=== PATIENT | female | born 1955 ===

== ENCOUNTER 2017-07-02 16:44 | Inpatient (IN) | payer OTHER ==
[2017-07-02] MEDS ORDERED: LEVO75TA68 PO (16:47)
[2017-07-02] MEDS ORDERED: ASPI-1471 PO (16:47)
[2017-07-02] MEDS ORDERED: PRAV20TA65 PO (16:47)
--- NOTE | 2017-07-02 16:49 | ER Report ---
History and Physical Time Seen By MD: 16:49 Hx. of Stated Complaint: C/O SEVERE ABDOMINAL PAIN. HPI/ROS CHIEF COMPLAINT: Abdominal pain HISTORY OF PRESENT ILLNESS: 62-year-old female patient presents to emergency room with complaint of abdominal pain. Patient states pain started approximately 2:00 this afternoon and states it wasn't terrible at that time. Patient states that the pain has worsened. She states that she tried have a bowel movement was able to have a small bowel movement. She states the pain seemed to worsen after that though. She states that she now is having significant abdominal pain. She states that there is nothing seems to make it better or worse. She initially thought she was constipated, however at this time she is unsure what is causing her pain. Patient denies a history of any abdominal surgeries. Patient states she's tried drinking some water as well as eating apple without any vomiting, however that seemed to make the pain worse. REVIEW OF SYSTEMS: Respiratory: No cough, no dyspnea. Cardiovascular: No chest pain, no palpitations. Gastrointestinal: As noted above Musculoskeletal: No back pain. Allergies: Coded Allergies: Penicillins (Verified Adverse Reaction, Mild, RASH, 07/02/17) Home Meds Reported Medications Aspirin (ASPIR 81) 81 Mg Tablet.dr, 81 MG PO QDAY, TAB 07/02/17 Pravastatin Sodium (PRAVACHOL) 20 Mg Tablet, 40 MG PO QDAY, TAB 07/02/17 Levothyroxine Sodium (SYNTHROID) 75 Mcg Tablet, 75 MCG PO QDAY 07/02/17 Past Medical/Surgical History Patient has a past medical history of hyperlipidemia, hypothyroidism. Patient denies any surgical history. Reviewed Nurses Notes: Yes Constitutional Vital Sign - Last 24 Hours 07/02/17 16:45 Temp 97.8 Pulse 69 Resp 22 B/P (MAP) 121/83 Pulse Ox 97 Physical Exam General Appearance: The patient is alert, has no immediate need for airway protection and no current signs of toxicity. ENT: Tympanic membranes are pearly-piedra, auditory canals are patent, mucous membranes are moist. Respiratory: Chest is non tender, lungs are clear to auscultation. Cardiac: regular rate and rhythm Gastrointestinal: Abdomen is soft and tender, no masses, bowel sounds are hypoactive. Musculoskeletal: Neck: Neck is supple and non tender. Extremities have full range of motion and are non tender. Skin: No rashes or lesions. DIFFERENTIAL DIAGNOSIS: After history and physical exam differential diagnosis was considered for abdominal pain including but not limited to appendicitis, cholecystitis, gastritis and urinary tract infection. Medical Decision Making Data Points Result Diagram: 07/02/17 1706 07/02/17 1706 Laboratory Hematology Test 07/02/17 17:06 07/02/17 18:37 Red Blood Count 5.31 M/uL (4.17-5.56) Mean Corpuscular Volume 96.3 fL (80.0-96.0) Mean Corpuscular Hemoglobin 33.7 pg (26.0-33.0) Mean Corpuscular Hemoglobin Concent 35.0 g/dL (32.0-36.0) Red Cell Distribution Width 13.1 % (11.5-14.5) Mean Platelet Volume 10.3 fL (7.2-11.1) Neutrophils (%) (Auto) 77.4 % (39.4-72.5) Lymphocytes (%) (Auto) 15.5 % (17.6-49.6) Monocytes (%) (Auto) 5.7 % (4.1-12.4) Eosinophils (%) (Auto) 0.6 % (0.4-6.7) Basophils (%) (Auto) 0.8 % (0.3-1.4) Nucleated RBC Relative Count (auto) 0.0 /100WBC Neutrophils # (Auto) 5.9 K/uL (2.0-7.4) Lymphocytes # (Auto) 1.2 K/uL (1.3-3.6) Monocytes # (Auto) 0.4 K/uL (0.3-1.0) Eosinophils # (Auto) 0.0 K/uL (0.0-0.5) Basophils # (Auto) 0.1 K/uL (0.0-0.1) Nucleated RBC Absolute Count (auto) 0.00 K/uL Sodium Level 139 mmol/L (137-145) Potassium Level 3.9 mmol/L (3.5-5.0) Chloride Level 104 mmol/L (98-107) Carbon Dioxide Level 23 mmol/L (22-31) Blood Urea Nitrogen 25 mg/dl (7-18) Creatinine 0.80 mg/dl (0.52-1.04) Glomerular Filtration Rate Calc > 60.0 Random Glucose 118 mg/dl (75-110) Calcium Level 9.6 mg/dl (8.4-10.2) Total Bilirubin 0.6 mg/dl (0.2-1.3) Aspartate Amino Transf (AST/SGOT) 24 U/L (0-35) Alanine Aminotransferase (ALT/SGPT) 38 U/L (0-56) Alkaline Phosphatase 96 U/L (0-126) Total Protein 7.6 gm/dl (6.3-8.2) Albumin 4.3 g/dl (3.5-5.0) Amylase Level 71 U/L (0-110) Lipase 54 U/L (23-300) Urine Color Yellow Urine Clarity Clear Urine pH 5.0 pH (4.8-9.5) Urine Specific Driver 1.056 Urine Protein Negative mg/dL (NEGATIVE) Urine Glucose (UA) Negative mg/dL (NEGATIVE) Urine Ketones 20 mg/dL (NEGATIVE) Urine Blood Negative (NEGATIVE) Urine Nitrite Negative (NEGATIVE) Urine Bilirubin Negative (NEGATIVE) Urine Urobilinogen 4.0 mg/dL (0.2-1.9) Urine Leukocyte Esterase Negative (NEGATIVE) Urine RBC 1 /HPF (0-2/HPF) Urine WBC 2 /HPF (0-5/HPF) Urine Squamous Epithelial Cells Many /LPF (</=FEW) Urine Bacteria Few /HPF (NONE-FEW) Urine Mucus Few /HPF (NONE-FEW) Chemistry Test 07/02/17 17:06 07/02/17 18:37 White Blood Count 7.7 k/uL (4.5-11.0) Red Blood Count 5.31 M/uL (4.17-5.56) Hemoglobin 17.9 g/dL (12.0-16.0) Hematocrit 51.1 % (34.0-47.0) Mean Corpuscular Volume 96.3 fL (80.0-96.0) Mean Corpuscular Hemoglobin 33.7 pg (26.0-33.0) Mean Corpuscular Hemoglobin Concent 35.0 g/dL (32.0-36.0) Red Cell Distribution Width 13.1 % (11.5-14.5) Platelet Count 156 K/uL (150-450) Mean Platelet Volume 10.3 fL (7.2-11.1) Neutrophils (%) (Auto) 77.4 % (39.4-72.5) Lymphocytes (%) (Auto) 15.5 % (17.6-49.6) Monocytes (%) (Auto) 5.7 % (4.1-12.4) Eosinophils (%) (Auto) 0.6 % (0.4-6.7) Basophils (%) (Auto) 0.8 % (0.3-1.4) Nucleated RBC Relative Count (auto) 0.0 /100WBC Neutrophils # (Auto) 5.9 K/uL (2.0-7.4) Lymphocytes # (Auto) 1.2 K/uL (1.3-3.6) Monocytes # (Auto) 0.4 K/uL (0.3-1.0) Eosinophils # (Auto) 0.0 K/uL (0.0-0.5) Basophils # (Auto) 0.1 K/uL (0.0-0.1) Nucleated RBC Absolute Count (auto) 0.00 K/uL Glomerular Filtration Rate Calc > 60.0 Calcium Level 9.6 mg/dl (8.4-10.2) Total Bilirubin 0.6 mg/dl (0.2-1.3) Aspartate Amino Transf (AST/SGOT) 24 U/L (0-35) Alanine Aminotransferase (ALT/SGPT) 38 U/L (0-56) Alkaline Phosphatase 96 U/L (0-126) Total Protein 7.6 gm/dl (6.3-8.2) Albumin 4.3 g/dl (3.5-5.0) Amylase Level 71 U/L (0-110) Lipase 54 U/L (23-300) Urine Color Yellow Urine Clarity Clear Urine pH 5.0 pH (4.8-9.5) Urine Specific Driver 1.056 Urine Protein Negative mg/dL (NEGATIVE) Urine Glucose (UA) Negative mg/dL (NEGATIVE) Urine Ketones 20 mg/dL (NEGATIVE) Urine Blood Negative (NEGATIVE) Urine Nitrite Negative (NEGATIVE) Urine Bilirubin Negative (NEGATIVE) Urine Urobilinogen 4.0 mg/dL (0.2-1.9) Urine Leukocyte Esterase Negative (NEGATIVE) Urine RBC 1 /HPF (0-2/HPF) Urine WBC 2 /HPF (0-5/HPF) Urine Squamous Epithelial Cells Many /LPF (</=FEW) Urine Bacteria Few /HPF (NONE-FEW) Urine Mucus Few /HPF (NONE-FEW) Urinalysis Test 07/02/17 18:37 Urine Color Yellow Urine Clarity Clear Urine pH 5.0 pH (4.8-9.5) Urine Specific Driver 1.056 Urine Protein Negative mg/dL (NEGATIVE) Urine Glucose (UA) Negative mg/dL (NEGATIVE) Urine Ketones 20 mg/dL (NEGATIVE) Urine Blood Negative (NEGATIVE) Urine Nitrite Negative (NEGATIVE) Urine Bilirubin Negative (NEGATIVE) Urine Urobilinogen 4.0 mg/dL (0.2-1.9) Urine Leukocyte Esterase Negative (NEGATIVE) Urine RBC 1 /HPF (0-2/HPF) Urine WBC 2 /HPF (0-5/HPF) Urine Squamous Epithelial Cells Many /LPF (</=FEW) Urine Bacteria Few /HPF (NONE-FEW) Urine Mucus Few /HPF (NONE-FEW) EKG/Imaging Imaging COMPUTED TOMOGRAPHY OF THE Abdomen and Pelvis with CONTRAST INDICATION: Abdominal pain. TECHNIQUE: Contiguous axial 3.[address] images were obtained through the abdomen and pelvis after the administration of 75 cc Isovue-370. Coronal and sagittal reformatted images were submitted. COMPARISON: None. FINDINGS: Lung bases: Clear. Liver and hepatic vasculature: There is trace fluid adjacent to the right lobe of the liver extending into the right pericolic gutter. There is also a small volume of fluid in the left pericolic gutter. Gallbladder and bile ducts: Normal Spleen: Normal Pancreas: Mild atrophy of the pancreatic head and neck. Adrenals: Normal Kidneys, ureters and bladder: Normal Retroperitoneum and aorta: Mild aortic atherosclerosis. No adenopathy. No aneurysm. GI tract, mesentery and peritoneum: There is free air scattered about the abdomen. It appears most concentrated centrally in the mid abdomen adjacent to the sigmoid colon and an area of abnormal wall thickening. The wall of the rectosigmoid colon is thickened over a relatively long segment. The proximal/ upstream colon appears normal. There are gas bubbles adjacent to the liver, spleen, and a few extend into a small fat-containing paraumbilical hernia at midline. Uterus and adnexa: Unremarkable uterus. Small volume of fluid in the cul-de-sac. Bones and soft tissues: No acute osseous abnormality. Mild degenerative findings. IMPRESSION: Free air in the abdomen suspicious for perforation (in the absence of recent surgery or intervention) with the most likely source being the sigmoid colon in the low midabdomen. The rectosigmoid colon is thick walled in this region which could reflect an infectious, inflammatory, or neoplastic etiology. Results were called to Dr. MARILEE LAI at 07/02/2017 6:45 PM. One of the following dose optimization techniques was utilized in the performance of this exam: Automated exposure control; adjustment of the mA and/ or kV according to the patient's size; or use of an iterative reconstruction technique. Specific details can be referenced in the facility's radiology CT exam operational policy. Report Dictated By: Barron Simmons MD at 07/02/2017 6:35 PM Report E-Signed By: Barron Simmons MD at 07/02/2017 6:52 PM ED Course/Re-evaluation ED Course Patient was admitted to exam room, history and physical were obtained. Differential diagnoses were considered. On examination patient has diffuse tenderness throughout the belly. A IV was started, CBC, CMP, urinalysis were obtained. Lab results were unremarkable. A CT scan of abdomen and pelvis was done. When I initially reviewed the images and the. The patient was just constipated. However did receive a call from Dr. Simmons, radiologist, who informed me that she did have a perforation, he believed the likely location of that was the rectosigmoid colon. I discussed the case with Dr. Flores, general surgeon, who evaluated the patient and site that she needed to go to the operating room for exploratory laparoscopy. I did discuss findings with the patient. They are understanding the current plan agree with plan to go to surgery. We did struggle during the patient's time in the emergency room getting her pain control. We did start with 4 mg of morphine which had no improvement. We then gave her 3 doses of 10 mg of ketamine, with minimal improvement. She did have more improvement with 1 mg of Dilaudid. Patient will be treated with Levaquin and Flagyl prior to going to the operating room. Decision to Disposition Date: Jul 02, 2017 Decision to Disposition Time: 19:04 Depart Departure Latest Vital Signs Vital Signs Date Time Temp Pulse Resp B/P (MAP) Pulse Ox O2 Delivery O2 Flow Rate FiO2 07/02/17 16:45 97.8 69 22 121/83 97 Impression: Primary Impression: Large bowel perforation Condition: Condition Unchanged Disposition: ADMIT FROM ER TO OR MARILEE LAI Jul 02, 2017 16:49
[2017-07-02] MEDS ORDERED: ONDANSETRON 4 MG/2 ML VIAL IVP ONE ×2 (16:55→19:50)
[2017-07-02] MEDS ORDERED: MORPHINE 2 MG/ML SYR IVP ONE (16:55)
[2017-07-02] MEDS ORDERED: NS(*) 0.9% 1000 ML BAG 1,000 ML IV ONE (16:55)
[2017-07-02] MEDS ORDERED: IOPAMIDOL 76% 75 ML INFUS BTL 75 ML ONE ×2 (17:05→18:08)
[2017-07-02] MEDS ORDERED: KETAMINE HCL 500 MG/5 ML VIAL IVP ONE (17:20)
[2017-07-02 17:33] LABS: PLATELET COUNT, AUTOMATED 156 K/uL (150-450)
--- NOTE | 2017-07-02 18:57 | RADIOLOGY IMAGING REPORT ---
FACILITY: [facility] - [place] PATIENT NAME: Isabela Rojas : 1955 MR: [id number] V: [id number] EXAM DATE: ORDERING PHYSICIAN: MARILEE LAI TECHNOLOGIST: Location: [facility] - [place] Patient: Isabela Rojas : 1955 Visit/Account:[id number] Date of Sevice: 07/02/2017 COMPUTED TOMOGRAPHY OF THE Abdomen and Pelvis with CONTRAST INDICATION: Abdominal pain. TECHNIQUE: Contiguous axial 3.[address] images were obtained through the abdomen and pelvis after the administration of 75 cc Isovue-370. Coronal and sagittal reformatted images were submitted. COMPARISON: None. FINDINGS: Lung bases: Clear. Liver and hepatic vasculature: There is trace fluid adjacent to the right lobe of the liver extendin g into the right pericolic gutter. There is also a small volume of fluid in the left pericolic gutter . Gallbladder and bile ducts: Normal Spleen: Normal Pancreas: Mild atrophy of the pancreatic head and neck. Adrenals: Normal Kidneys, ureters and bladder: Normal Retroperitoneum and aorta: Mild aortic atherosclerosis. No adenopathy. No aneurysm. GI tract, mesentery and peritoneum: There is free air scattered about the abdomen. It appears most co ncentrated centrally in the mid abdomen adjacent to the sigmoid colon and an area of abnormal wall th ickening. The wall of the rectosigmoid colon is thickened over a relatively long segment. The proxima l/upstream colon appears normal. There are gas bubbles adjacent to the liver, spleen, and a few exten d into a small fat-containing paraumbilical hernia at midline. Uterus and adnexa: Unremarkable uterus. Small volume of fluid in the cul-de-sac. Bones and soft tissues: No acute osseous abnormality. Mild degenerative findings. IMPRESSION: Free air in the abdomen suspicious for perforation (in the absence of recent surgery or intervention) with the most likely source being the sigmoid colon in the low midabdomen. The rectosigmoid colon is thick walled in this region which could reflect an infectious, inflammatory, or neoplastic etiology. Results were called to Dr. MARILEE LAI at 07/02/2017 6:45 PM. One of the following dose optimization techniques was utilized in the performance of this exam: Autom ated exposure control; adjustment of the mA and/or kV according to the patient's size; or use of an i terative reconstruction technique. Specific details can be referenced in the facility's radiology C T exam operational policy. Report Dictated By: Barron Simmons MD at 07/02/2017 6:35 PM Report E-Signed By: Barron Simmons MD at 07/02/2017 6:52 PM WSN:[id number]
[2017-07-02] MEDS ORDERED: HYDROmorphone* 1 MG/ML 1 MG/ML ML IVP ONE (19:05)
[2017-07-02] MEDS ORDERED: metroNIDAZOLE* 500MG/100ML BAG 100 ML IVPB ONE (19:15)
[2017-07-02] MEDS ORDERED: LEVOFLOXACIN/D5W*500 MG/100 ML 100 ML IVPB ONE (19:15)
[2017-07-02] MEDS ORDERED: NORMOSOL R SOLN(*) 1000 ML BAG 1,000 ML IV ONE (19:18)
[2017-07-02] MEDS ORDERED: NORMOSOL R SOLN(*) 1000 ML BAG 1,000 ML IV PRN (19:20)
--- NOTE | 2017-07-02 19:20 | General Surgery 1 H&P ---
History of Present Illness Chief Complaint abdominal pain History of Present Illness 62 yo female with abdominal pain since 2 pm. sharp unrelenting diffuse pain that is hard to control with narcotics. she has been having constipation for a few days prior to this episode. she has had a colonoscopy in the past that was normal. ct suggests a thickened sigmoid colon and free air most likely secondary to perforated sigmoid colon. History Other Past Surgeries: knee operation Home Meds Reported Medications Aspirin (ASPIR 81) 81 Mg Tablet.dr, 81 MG PO QDAY, TAB 07/02/17 Pravastatin Sodium (PRAVACHOL) 20 Mg Tablet, 40 MG PO QDAY, TAB 07/02/17 Levothyroxine Sodium (SYNTHROID) 75 Mcg Tablet, 75 MCG PO QDAY 07/02/17 Allergies: Coded Allergies: Penicillins (Verified Adverse Reaction, Mild, RASH, 07/02/17) Review of Systems History of Hypertension?: No History of Diabetes?: No History of DVT?: No Obstructive Sleep Apnea?: No History of Liver Disease?: No History of Kidney Disease?: No Constitutional: No Fever, No Weight Loss, No Weight Gain, No Chills, No Night Sweats, No Other Respiratory: Denies Shortness of Breath, Denies Other Cardiovascular: Denies Chest Pain, Denies Other : Denies Dysuria, Denies Other Exam Vital Signs Date Time Temp Pulse Resp B/P (MAP) Pulse Ox O2 Delivery O2 Flow Rate FiO2 07/02/17 16:45 97.8 69 22 121/83 97 General Appearance: Alert, Awake, Other (in severe abdominal pain.) Cardiovascular: Regular Rate and Rhythm Respiratory: Clear to Auscultation GI: Other (rigid abdomen with diffuse guarding) Medical Decision Making Data Points Result Diagram: 07/02/17 1706 07/02/17 1706 Assessment and Plan Problems: (1) Large bowel perforation Status: Acute Assessment & Plan: to the operating room massiel for exploration and most likely a sigmoid colectomy and may need a colostomy. will try primary repair if possible. Copies to: TITO LOZADA MD Venous Thromboembolism Antithrombotics Is Pt On Any Antithrombotics?: No TITO LOZADA MD Jul 02, 2017 19:20
[2017-07-02] MEDS ORDERED: ROPIVACAINE 0.2% 20 ML VIAL ONE ×2 (19:38→21:20)
[2017-07-02] MEDS ORDERED: FAMOTIDINE(*) 20MG/50ML PREMIX 50 ML IVPB ONE (19:39)
[2017-07-02] MEDS ORDERED: NALOXONE HCL 0.4 MG/ML VIAL IVP PRN (19:40)
[2017-07-02] MEDS ORDERED: ONDANSETRON 4 MG/2 ML VIAL ONE (19:42)
[2017-07-02] MEDS ORDERED: ETOMIDATE 20 MG/10 ML VIAL ONE (19:42)
[2017-07-02] MEDS ORDERED: SUCCINYLCHOL CHL 200MG/10ML VL ONE (19:42)
[2017-07-02] MEDS ORDERED: PROPOFOL EMUL(*) 10MG/ML 20 ML 20 ML ONE (19:42)
[2017-07-02] MEDS ORDERED: DEXAMETHASONE SOD PHOS 10MG/ML ONE (19:42)
[2017-07-02] MEDS ORDERED: ROCURONIUM BROM 10 MG/ML 10 ML ONE (19:42)
[2017-07-02] MEDS ORDERED: LIDOCAINE MPF 1% 5 ML VIAL ONE (19:42)
[2017-07-02] MEDS ORDERED: fentaNYL CITR 100 MCG/2 ML AMP ONE (19:45)
[2017-07-02] MEDS ORDERED: MIDAZOLAM 2 MG/2 ML VIAL ONE (19:45)
[2017-07-02] MEDS ORDERED: HYDROmorphone HCL 2 MG/ML SDV ONE (20:51)
[2017-07-02] MEDS ORDERED: ACETAMINOPHEN(*)1000 MG/100 ML 100 ML IVPB SCH (21:00)
[2017-07-02] MEDS ORDERED: NS 0.9% 3000 ML IRRIGATION BAG IR ONE (21:24)
[2017-07-02] MEDS ORDERED: NS 0.9% 20 ML SDV 20 ML ONE (21:41)
[2017-07-02] MEDS ORDERED: PHENYLEPHRINE/NS/PF 0.4MG/10ML ONE (21:41)
[2017-07-02] MEDS ORDERED: ALBUMIN HUMAN 5% 250 ML BTL 250 ML ONE (21:47)
[2017-07-02] MEDS ORDERED: SUGAMMADEX SOD 500 MG/5 ML SDV ONE (21:48)
--- NOTE | 2017-07-02 22:18 | Post Operative Progress Note ---
Post Operative Progress Note Date: Jul 02, 2017 Time: 22:17 Surgeon: julieta Anesthesia: dr mariscal Pre-Op Diagnosis: perforated sigmoid colon Post-Op Diagnosis: same Procedure(s): sigmoid colectomy and end colostomy. TITO LOZADA MD Jul 02, 2017 22:18
[2017-07-02] MEDS ORDERED: PROMETHAZINE 25 MG/ML 1 ML AMP ONE (23:00)
[2017-07-02 23:43] VITALS: BP 131/84
[2017-07-03] VITALS (11 sets, daily range): BP systolic 96–122; BP diastolic 60–82
[2017-07-03] MEDS: NORMOSOL R SOLN(*) 1000 ML BAG 1,000 ML IV PRN ×3 (00:30→14:02)
[2017-07-03] MEDS ORDERED: metroNIDAZOLE* 500MG/100ML BAG 100 ML IVPB SCH (01:00)
[2017-07-03] MEDS: MORPHINE 1 MG/ML 30 ML PCA IV PRN ×2 (03:02→16:01)
[2017-07-03] MEDS: metroNIDAZOLE* 500MG/100ML BAG 100 ML IVPB SCH ×3 (03:17→19:11)
--- NOTE | 2017-07-03 04:33 | OPERATIVE REPORT 1 ---
EVENT DATE: July 02, 2017 SURGEON: Ottoniel Flores MD ANESTHESIOLOGIST: Venkat Beach MD ANESTHESIA: General. PREOPERATIVE DIAGNOSIS Perforated colon. POSTOPERATIVE DIAGNOSIS Perforated sigmoid colon. PROCEDURE PERFORMED Sigmoid colectomy with end colostomy and a Kel pouch. PROCEDURE Patient was placed in the supine position, given general anesthetic. NG, Barlow were placed. Sequential compression device was placed. We then placed her in modified lithotomy position in the [facility]. The abdomen was then prepped and draped in sterile fashion. We made an incision below the umbilicus , carried down through the skin and subcutaneous tissue, and entered the peritoneal cavity. There was brownish ascitic fluid. This was suctioned. We reached in the left lower quadrant and could palpate a firm colon full of stool , and there were some omental adhesions down there. Because of the brown color of the fluid, it was pretty apparent to me that this was a colon perforation, so the incision was extended inferiorly. We then packed the small bowel away. Small bowel was beefy red and markedly inflamed. The left colon had numerous hard stool pieces in it. As we worked our way down towards the rectosigmoid junction, we came upon a free-floating piece of stool that was 4.5 cm in diameter. This large chunk of stool was removed from the field. We then identified the perforated distal sigmoid colon. It was perforated on the right side. At this point, we freed up the lateral peritoneal attachments of the sigmoid colon so we could get better visualization of this. We then dissected distal to the hold in the sigmoid colon close to the rectosigmoid junction, dissected circumferentially around that with electrocautery. We then fired a 60 linear stapler across that, transected the bowel. The mesentery of the colon was then divided with the harmonic scalpel, and we were able to free that colon up and bring it up into the wound, where we could get good visualization. She had numerous large balls of stool present in the colon. These were milked out of the hole. We cleared out the entire left colon with gentle milking action of these hard large pieces of stool. However, the transverse colon was completely filled with stool. It was softer, but still full, as was the right colon and the cecum. I could not bring myself to do a primary reanastomosis in this patient with that kind of stool that was going to have to pass, and the fact that she had put a hole in her colon from constipation already, so it was decided to do a colostomy. We freed up the colon a little bit more with the harmonic scalpel. We seemed to have plenty of length to do a colostomy. We then spent several minutes doing copious irrigation of the abdomen with saline into all quadrants, suctioning this out. This was done repeatedly, and we cleared it up as best we could. At this point, we made a transverse incision between the umbilicus and the anterior superior iliac spine , and we were above this, carried down through skin and subcutaneous tissue, incised the rectus fascia vertically, spread the rectus muscle vertically, incised the posterior sheath. We were able to get two fingers through this opening. We then brought the sigmoid colon out through this opening. At this point, we did a sponge and needle count. All the counts were correct. The peritoneum was then closed with a running #0-Chromic. The fascia was closed with running looped #0-PDS. We injected 40 mL of 0.2% ropivacaine in the muscle and subcutaneous tissue. The deep subcu was reapproximated loosely with interrupted 2-0 Chromics. We then covered this. We went to the stoma. We went proximal to the perforation, of course, and put a linear stapler across that, fired it and removed that portion of the sigmoid colon from the field. We then brought the stapled end out through the left lower quadrant colostomy incision. At this point, we cut the staple line off and matured the colostomy with interrupted 3-0 Chromics, going full thickness seromuscular and mucosa, and then attaching it to the skin. This was done circumferentially. The bowel appeared nice and pink and viable, and we then placed a colostomy bag over this. We then placed saline moist Kerlix in the wound, and covered it with 4x4' s and Mediport tape. Patient tolerated the procedure well, no apparent complication. Estimated blood loss was negligible. MTDD
[2017-07-03 05:36] LABS: PLATELET COUNT, AUTOMATED 113 K/uL (150-450)
[2017-07-03] MEDS: ACETAMINOPHEN(*)1000 MG/100 ML 100 ML IVPB SCH ×3 (06:35→23:16)
--- NOTE | 2017-07-03 08:02 | General Surgery Progress Note ---
Subjective Progress Notes Subjective pt feels much better than preop, no nausea no vomiting. Physical Exam Vital Signs Date Time Temp Pulse Resp B/P (MAP) Pulse Ox O2 Delivery O2 Flow Rate FiO2 07/03/17 07:14 98.3 75 16 96/82 (87) 96 Nasal Cannula 1.0 Intake and Output 07/04/17 07:00 Intake Total 1033 ml Balance 1033 ml Intake IV Total 1033 ml General Appearance: Alert, Awake, No Acute Distress GI: Other (stoma viable) Result Diagram: 07/03/1751907/03/17519 Assessment and Plan Problems: (1) Large bowel perforation Status: Acute Assessment & Plan: to the operating room massiel for exploration and most likely a sigmoid colectomy and may need a colostomy. will try primary repair if possible. 07/03/17 doing well. so far wbc normal. hgb at 14. bun and creat ok. will work on ambulation , keep npo. Exam Sepsis Risk: No Definite Risk TITO LOZADA MD Jul 03, 2017 08:02
[2017-07-03] MEDS: ENOXAPARIN 40 MG/0.4ML SYR SC SCH (08:45)
[2017-07-03] MEDS: PANTOPRAZOLE SOD 40 MG IV VIAL IVP SCH (08:45)
[2017-07-03] MEDS: ONDANSETRON 4 MG/2 ML VIAL IVP PRN ×2 (11:23→19:54)
[2017-07-03] MEDS ORDERED: NORMOSOL R SOLN(*) 1000 ML BAG 1,000 ML IV PRN (17:40)
[2017-07-03] MEDS: LEVOFLOXACIN/D5W*500 MG/100 ML 100 ML IVPB SCH (17:48)
[2017-07-03] MEDS: KETOROLAC 30 MG/ML VIAL IVP SCH ×2 (17:48→23:16)
[2017-07-04] MEDS: metroNIDAZOLE* 500MG/100ML BAG 100 ML IVPB SCH ×3 (03:39→19:47)
[2017-07-04 03:46] VITALS: BP 109/58
[2017-07-04 05:44] LABS: PLATELET COUNT, AUTOMATED 96 K/uL (150-450)
[2017-07-04] MEDS: KETOROLAC 30 MG/ML VIAL IVP SCH ×4 (06:23→23:27)
[2017-07-04] MEDS: ACETAMINOPHEN(*)1000 MG/100 ML 100 ML IVPB SCH ×3 (06:23→23:28)
[2017-07-04 08:26] VITALS: BP 98/51
[2017-07-04] MEDS ORDERED: MAGNESIUM HYDROXIDE* 30ML UDCP PO PRN (09:10)
--- NOTE | 2017-07-04 09:13 | General Surgery Progress Note ---
Subjective Progress Notes Subjective pain controlled, slept ok. moving a little easier Physical Exam Vital Signs Date Time Temp Pulse Resp B/P (MAP) Pulse Ox O2 Delivery O2 Flow Rate FiO2 07/04/17 08:28 90 Room Air 07/04/17 08:26 98.4 62 14 98/51 (67) 07/04/17 03:46 1.0 General Appearance: Alert, Awake, No Acute Distress GI: Other (stoma with flatus) Result Diagram: 07/04/1752307/04/17523 Assessment and Plan Problems: (1) Large bowel perforation Status: Acute Assessment & Plan: to the operating room massiel for exploration and most likely a sigmoid colectomy and may need a colostomy. will try primary repair if possible. 07/03/17 doing well. so far wbc normal. hgb at 14. bun and creat ok. will work on ambulation , keep npo. 07/04/17 doing well. has flatus will try clears and milk of mag. will do mineral oil enema as well. Exam Sepsis Risk: No Definite Risk TITO LOZADA MD Jul 04, 2017 09:13
[2017-07-04] MEDS: PANTOPRAZOLE SOD 40 MG IV VIAL IVP SCH (09:20)
[2017-07-04] MEDS: ENOXAPARIN 40 MG/0.4ML SYR SC SCH (09:21)
[2017-07-04] MEDS: KCL IV SCH ×2 (10:11→20:30)
[2017-07-04] MEDS: NORMOSOL R IV SCH ×2 (10:11→20:30)
[2017-07-04 11:32] VITALS: BP 97/52
[2017-07-04] MEDS: ONDANSETRON 4 MG/2 ML VIAL IVP PRN ×2 (14:32→19:51)
--- NOTE | 2017-07-04 14:59 | Medical Nutrition Therapy ---
Nutrition Anthropometrics Weight (Pounds): 184 Weight (Calculated Kilograms): 83.461 Sudeep Nutrition Score: Probably Inadequate Sudeep Nutrition Risk Score: 16 Dietary Referral Nutrition Risk Factors: Nutrition Risk Comment: Pt sleeping from Surgery. Unable to gain information. Nutritional Diagnosis Nutritional Risk Acuity 2: New Colostomy Nutritional Acuity: 2-Moderate Nutrition Diagnosis: Altered GI Function Nutrition Etiology: Physiological Causes Nutrition Problem/Etiology/Sym: Altered GI function related to physiological causes as evidenced by new colostomy Diet Type: Clear Liquids Nutrition Intervention: Incr diet as tolerated, Obtain Height and Weight Optional Order Time?: No Nutrition Monitoring & Eval RD Patient Assessment Time: [address] Assessment Type: RD Assessment Patient Nutrition Acuity: 2-Moderate Follow Up Date: Jul 08, 2017 Nutritional Comment: 07/03 Pt admitted with new colostomy following surgery for perf bowel. Pt currently NPO. Alb 3. Will cont to monitor. 07/04 Diet advanced to clear liquids with no intake to report yet. Notable labs include BUN 22, tot pro 4.8 and alb 2.5. Please obtain ht and wt for energy needs calculations. Will cont to monitor clinical progression and diet advancement. STACIE SOUTH Jul 04, 2017 14:59
[2017-07-04] MEDS: LEVOFLOXACIN/D5W*500 MG/100 ML 100 ML IVPB SCH (18:42)
[2017-07-04 19:35] VITALS: BP 111/70
[2017-07-04 23:36] VITALS: BP 106/62
[2017-07-05] MEDS: KCL IV SCH (00:45)
[2017-07-05] MEDS: NORMOSOL R IV SCH (00:45)
[2017-07-05] MEDS: MORPHINE 1 MG/ML 30 ML PCA IV PRN (01:58)
[2017-07-05 01:59] VITALS: BP 115/68
[2017-07-05] MEDS: metroNIDAZOLE* 500MG/100ML BAG 100 ML IVPB SCH ×3 (02:17→19:19)
[2017-07-05] MEDS: KETOROLAC 30 MG/ML VIAL IVP SCH ×4 (06:17→23:59)
[2017-07-05] MEDS: ACETAMINOPHEN(*)1000 MG/100 ML 100 ML IVPB SCH ×3 (06:18→23:00)
[2017-07-05 08:07] VITALS: BP 112/64
--- NOTE | 2017-07-05 08:59 | General Surgery Progress Note ---
Subjective Progress Notes Subjective no appetite, tolerating some clears Physical Exam Vital Signs Date Time Temp Pulse Resp B/P (MAP) Pulse Ox O2 Delivery O2 Flow Rate FiO2 07/05/17 08:07 97.6 60 16 112/64 (80) 96 Room Air 60 07/05/17 01:59 0.5 General Appearance: Alert, Awake, No Acute Distress GI: Other (stoma with some stool output) Result Diagram: 07/04/17 0507/04/1724 Assessment and Plan Problems: (1) Large bowel perforation Status: Acute Assessment & Plan: to the operating room massiel for exploration and most likely a sigmoid colectomy and may need a colostomy. will try primary repair if possible. 07/03/17 doing well. so far wbc normal. hgb at 14. bun and creat ok. will work on ambulation , keep npo. 07/04/17 doing well. has flatus will try clears and milk of mag. will do mineral oil enema as well. 07/05/17 bowel function returning. try increasing diet and continue with bowel stimulants. Exam Sepsis Risk: No Definite Risk TITO LOZADA MD Jul 05, 2017 08:59
[2017-07-05] MEDS: ONDANSETRON 4 MG/2 ML VIAL IVP PRN ×2 (09:00→18:51)
[2017-07-05] MEDS ORDERED: MAGNESIUM HYDROXIDE* 30ML UDCP PO PRN (09:05)
[2017-07-05] MEDS: APAP/HYDROCODONE 325/5 TAB PO PRN ×3 (09:13→17:23)
[2017-07-05] MEDS: ENOXAPARIN 40 MG/0.4ML SYR SC SCH (09:16)
[2017-07-05] MEDS ORDERED: NORMOSOL R IV SCH (11:30)
[2017-07-05] MEDS ORDERED: KCL IV SCH (11:30)
[2017-07-05 12:58] VITALS: BP 126/77
[2017-07-05 15:43] VITALS: BP 134/73
[2017-07-05] MEDS: LEVOFLOXACIN/D5W*500 MG/100 ML 100 ML IVPB SCH (17:59)
[2017-07-05 19:22] VITALS: BP 132/72
[2017-07-06] VITALS: BP 132/84
[2017-07-06] MEDS: metroNIDAZOLE* 500MG/100ML BAG 100 ML IVPB SCH ×3 (03:40→19:23)
[2017-07-06 03:52] VITALS: BP 133/71
[2017-07-06] MEDS: KETOROLAC 30 MG/ML VIAL IVP SCH ×3 (07:08→18:11)
[2017-07-06] MEDS: ONDANSETRON 4 MG/2 ML VIAL IVP PRN ×2 (07:09→19:24)
[2017-07-06 07:30] VITALS: BP 137/78
[2017-07-06] MEDS ORDERED: POLYETHYLENE GLYCOL 17 GM PKT PO ONE (08:25)
[2017-07-06] MEDS: ENOXAPARIN 40 MG/0.4ML SYR SC SCH (08:59)
[2017-07-06] MEDS: PANTOPRAZOLE SOD 40 MG TABEC PO SCH (08:59)
[2017-07-06] MEDS: NORMOSOL R IV SCH (09:30)
[2017-07-06] MEDS: KCL IV SCH (09:30)
[2017-07-06 10:52] VITALS: BP 142/88
[2017-07-06 11:21] LABS: PLATELET COUNT, AUTOMATED 134 K/uL (150-450)
[2017-07-06] MEDS: APAP/HYDROCODONE 325/5 TAB PO PRN ×3 (11:45→16:03)
[2017-07-06 15:14] VITALS: BP 134/77
[2017-07-06] MEDS: LEVOFLOXACIN/D5W*500 MG/100 ML 100 ML IVPB SCH (18:11)
[2017-07-06 18:19] VITALS: BP 141/80
[2017-07-06] MEDS: PROMETHAZINE 25 MG/ML 1 ML AMP IVP PRN (20:53)
[2017-07-07] MEDS: KETOROLAC 30 MG/ML VIAL IVP SCH ×4 (00:29→18:00)
[2017-07-07 02:18] VITALS: BP 140/76
[2017-07-07] MEDS: metroNIDAZOLE* 500MG/100ML BAG 100 ML IVPB SCH ×3 (02:20→19:23)
[2017-07-07] MEDS: APAP/HYDROCODONE 325/5 TAB PO PRN ×3 (02:21→16:00)
[2017-07-07] MEDS: ONDANSETRON 4 MG/2 ML VIAL IVP PRN (02:21)
[2017-07-07] MEDS: KCL IV SCH (05:35)
[2017-07-07] MEDS: NORMOSOL R IV SCH (05:35)
[2017-07-07] MEDS: METOCLOPRAMIDE 10 MG/2 ML SDV IVP PRN ×2 (05:41→19:23)
[2017-07-07 07:25] VITALS: BP 124/68
--- NOTE | 2017-07-07 08:35 | General Surgery Progress Note ---
Subjective Progress Notes Subjective pt with some nausea last pm. slept ok Physical Exam Vital Signs Date Time Temp Pulse Resp B/P (MAP) Pulse Ox O2 Delivery O2 Flow Rate FiO2 07/07/17 07:37 97 Nasal Cannula 1.0 07/07/17 07:25 98.7 68 124/68 (86) 07/07/17 02:18 16 General Appearance: Alert, Awake, No Acute Distress GI: Soft and Non-Tender (stoma with some solid stool) Result Diagram: 07/06/17 1111 07/06/17 1111 Assessment and Plan Problems: (1) Large bowel perforation Status: Acute Assessment & Plan: to the operating room massiel for exploration and most likely a sigmoid colectomy and may need a colostomy. will try primary repair if possible. 07/03/17 doing well. so far wbc normal. hgb at 14. bun and creat ok. will work on ambulation , keep npo. 07/04/17 doing well. has flatus will try clears and milk of mag. will do mineral oil enema as well. 07/05/17 bowel function returning. try increasing diet and continue with bowel stimulants. 07/07/17 continue to work on getting colon cleaned out. Exam Sepsis Risk: No Definite Risk TITO LOZADA MD Jul 07, 2017 08:35
[2017-07-07] MEDS: PANTOPRAZOLE SOD 40 MG TABEC PO SCH (08:54)
[2017-07-07] MEDS: ENOXAPARIN 40 MG/0.4ML SYR SC SCH (08:56)
[2017-07-07] MEDS ORDERED: POLYETHYLENE GLYCOL 17 GM PKT PO ONE (09:00)
[2017-07-07 11:16] VITALS: BP 117/63
[2017-07-07 15:02] VITALS: BP 134/82
[2017-07-07] MEDS: LEVOFLOXACIN/D5W*500 MG/100 ML 100 ML IVPB SCH (18:00)
[2017-07-07 19:22] VITALS: BP 129/66
[2017-07-07] MEDS: PROMETHAZINE 25 MG/ML 1 ML AMP IVP PRN (20:48)
[2017-07-08 02:06] VITALS: BP 140/75
[2017-07-08] MEDS: APAP/HYDROCODONE 325/5 TAB PO PRN ×4 (02:17→17:45)
[2017-07-08] MEDS: METOCLOPRAMIDE 10 MG/2 ML SDV IVP PRN (02:17)
[2017-07-08] MEDS: metroNIDAZOLE* 500MG/100ML BAG 100 ML IVPB SCH (02:17)
[2017-07-08 07:07] VITALS: BP 137/67
[2017-07-08] MEDS: KETOROLAC 30 MG/ML VIAL IVP SCH ×3 (07:30→12:06)
[2017-07-08] MEDS ORDERED: POLYETHYLENE GLYCOL 17 GM PKT PO ONE (08:15)
--- NOTE | 2017-07-08 08:15 | General Surgery Progress Note ---
Subjective Progress Notes Subjective slept well. feels better, no nausea Physical Exam Vital Signs Date Time Temp Pulse Resp B/P (MAP) Pulse Ox O2 Delivery O2 Flow Rate FiO2 07/08/17 07:07 99.1 82 16 137/67 (90) 92 Room Air 07/08/17 02:06 0.5 Intake and Output 07/09/17 07:00 # Voids 1 General Appearance: Alert, Awake, No Acute Distress GI: Soft and Non-Tender, Other (wound reapproximated with jackie, stoma functioning) Result Diagram: 07/06/17 1111 07/06/17 1111 Assessment and Plan Problems: (1) Large bowel perforation Status: Acute Assessment & Plan: to the operating room massiel for exploration and most likely a sigmoid colectomy and may need a colostomy. will try primary repair if possible. 07/03/17 doing well. so far wbc normal. hgb at 14. bun and creat ok. will work on ambulation , keep npo. 07/04/17 doing well. has flatus will try clears and milk of mag. will do mineral oil enema as well. 07/05/17 bowel function returning. try increasing diet and continue with bowel stimulants. 07/07/17 continue to work on getting colon cleaned out. 07/08/17 continues to improve Exam Sepsis Risk: No Definite Risk TITO LOZADA MD Jul 08, 2017 08:15
[2017-07-08 08:27] VITALS: BP 137/67
[2017-07-08] MEDS ORDERED: DOCUSATE SODIUM 100 MG CAP PO SCH (09:00)
[2017-07-08] MEDS: METRONIDAZOLE 500 MG TABLET PO SCH ×2 (09:01→14:42)
[2017-07-08] MEDS: ENOXAPARIN 40 MG/0.4ML SYR SC SCH (09:01)
[2017-07-08] MEDS: PANTOPRAZOLE SOD 40 MG TABEC PO SCH (09:01)
[2017-07-08] MEDS ORDERED: LEVOFLOXACIN 500 MG TAB PO SCH (10:00)
[2017-07-08 12:14] VITALS: BP 143/86
[2017-07-08 15:15] VITALS: BP 134/69
--- NOTE | 2017-07-08 16:12 | Medical Nutrition Therapy ---
Nutritional Education Nutrition Education Topic: Other (colostomy) Learning Readiness: Interested Teaching Methods: Discussion, Handout Response to Teaching: Verbalize understanding Teaching Recipient: Patient Nutrition Counseling: Provided education on colostomy diet. Reviewed foods that can cause blockage, odor, gas, discoleration, looser and more firm stools. Nutrition Monitoring & Eval RD Patient Assessment Time: [address] Assessment Type: RD Education Patient Nutrition Acuity: 2-Moderate KANWAL ANDREA Jul 08, 2017 16:12
--- NOTE | 2017-07-08 16:52 | General Surgery Progress Note ---
Subjective Progress Notes Subjective no complaints Physical Exam Vital Signs Date Time Temp Pulse Resp B/P (MAP) Pulse Ox O2 Delivery O2 Flow Rate FiO2 07/08/17 15:15 97.6 82 16 134/69 (90) 92 Room Air 07/08/17 08:27 0.5 Intake and Output 07/09/17 07:00 Intake Total 120 ml Output Total 125 ml Balance -5 ml Intake Oral 120 ml Stool Total 125 ml # Voids 6 Result Diagram: 07/06/17 1111 07/06/17 1111 Assessment and Plan Problems: (1) Large bowel perforation Status: Acute Assessment & Plan: to the operating room massiel for exploration and most likely a sigmoid colectomy and may need a colostomy. will try primary repair if possible. 07/03/17 doing well. so far wbc normal. hgb at 14. bun and creat ok. will work on ambulation , keep npo. 07/04/17 doing well. has flatus will try clears and milk of mag. will do mineral oil enema as well. 07/05/17 bowel function returning. try increasing diet and continue with bowel stimulants. 07/07/17 continue to work on getting colon cleaned out. 07/08/17 continues to improve 07/08/17 home today Exam Sepsis Risk: No Definite Risk TITO LOZADA MD Jul 08, 2017 16:52
[2017-07-08] MEDS ORDERED: HYDR-4309 PO (16:54)
[2017-07-08] MEDS ORDERED: LEVO-85 PO (16:54)
[2017-07-08] MEDS ORDERED: DOCU-416 PO (16:54)
[2017-07-08] MEDS ORDERED: METR-1 PO (16:54)
--- NOTE | 2017-07-08 16:54 | Medical Nutrition Therapy ---
Nutrition Anthropometrics Weight (Pounds): 184 Weight (Calculated Kilograms): 83.461 Sudeep Nutrition Score: Adequate Sudeep Nutrition Risk Score: 17 Dietary Referral Nutrition Risk Factors: Nutrition Risk Comment: Pt sleeping from Surgery. Unable to gain information. Physical Findings Physical Appearance: Skin Appearance Skin Appearance: Edema Edema Location Modifier: Both Edema Location: Lower Extremity Type of Edema: Degree of Edema: Gastrointestinal Symptoms GI Symtoms: Change in Bowel Pattern Tube Present: Bowel Sounds: Recent Bowel Pattern: Stool Characteristics: Nutritional Diagnosis Nutritional Risk Acuity 2: New Colostomy Nutritional Acuity: 2-Moderate Nutrition Diagnosis: Altered GI Function Nutrition Etiology: Physiological Causes Nutrition Problem/Etiology/Sym: Altered GI function related to physiological causes as evidenced by new colostomy Energy Requirement: 2170 (kcal per day (26 kcal/kg)) Protein Requirement: 83 (g per day (1 g per kg)) Fluid Requirement: 2500 (mL per day (30 mL/kg)) Diet Type: Diet as Tolerated FLAKITA/REG Nutrition Intervention: Cont diet as ordered, Encourage intake, Incr diet as tolerated, Obtain Height and Weight Food Likes: chicken and beef broth Food Dislikes: tea Optional Order Time?: No Nutrition Monitoring & Eval RD Patient Assessment Time: [address] Assessment Type: RD Assessment Patient Nutrition Acuity: 2-Moderate Follow Up Date: Jul 13, 2017 Nutritional Comment: 07/03 Pt admitted with new colostomy following surgery for perf bowel. Pt currently NPO. Alb 3. Will cont to monitor. 07/04 Diet advanced to clear liquids with no intake to report yet. Notable labs include BUN 22, tot pro 4.8 and alb 2.5. Please obtain ht and wt for energy needs calculations. Will cont to monitor clinical progression and diet advancement. 07/08: Pt diet advanced to FLAKITA. Pt has consumed 50% x breakfast and 25% x lunch. Pt alb has decreased from last assessment from 2.5 to 2.4. Monitor need for colostomy diet education. ALFREDO RODRIGUEZ Jul 08, 2017 15:15
--- NOTE | 2017-07-08 16:56 | Hospitalist Depart ---
Discharge Summary Reason for Hosp/Final Diag: (1) Large bowel perforation Status: Acute Hospital Course & Plan: to the operating room massiel for exploration and most likely a sigmoid colectomy and may need a colostomy. will try primary repair if possible. 07/03/17 doing well. so far wbc normal. hgb at 14. bun and creat ok. will work on ambulation , keep npo. 07/04/17 doing well. has flatus will try clears and milk of mag. will do mineral oil enema as well. 07/05/17 bowel function returning. try increasing diet and continue with bowel stimulants. 07/07/17 continue to work on getting colon cleaned out. 07/08/17 continues to improve 07/08/17 home today Departure Weight (Pounds): 184 Result Diagram: 07/06/17 1111 07/06/17 1111 Condition: Improved Discharge: Home Home Health RN Follow Up For: Nursing Assessment, Wound [facility] [employer]OR Follow Up For: ADL Assistance Discharge Instructions Home Meds Active Scripts Hydrocodone Bit/Acetaminophen (NORCO 5-325 TABLET) 1 Each Tablet, 1 EACH PO Q4H Y for PAIN, #30 TAB Prov:TITO OLZADA MD 07/08/17 Docusate Sodium (COLACE) 100 Mg Capsule, 100 MG PO BID, #60 CAPSULE Prov:TITO LOZADA MD 07/08/17 Metronidazole (FLAGYL) 500 Mg Tablet, 500 MG PO TID, #6 TAB Prov:TITO LOZADA MD 07/08/17 Levofloxacin 500 Mg Tab (LEVAQUIN 500 MG TAB) 500 Mg Tablet, 500 MG PO QDAY, #2 TAB Prov:TITO LOZADA MD 07/08/17 Reported Medications Aspirin (ASPIR 81) 81 Mg Tablet.dr, 81 MG PO QDAY, TAB 07/02/17 Pravastatin Sodium (PRAVACHOL) 20 Mg Tablet, 40 MG PO QDAY, TAB 07/02/17 Levothyroxine Sodium (SYNTHROID) 75 Mcg Tablet, 75 MCG PO QDAY 07/02/17 Diet: Regular Activity: No Heavy Lifting Special Instructions: may shower to see me in one week, call [phone] for apt Venous Thromboembolism Antithrombotics Is Pt On Any Antithrombotics?: No TITO LOZADA MD Jul 08, 2017 16:55
== END 2017-07-08 17:50 | disposition home health service (06) | DRG 331 ==
LOC: ER 16:51 → OR 19:06 → MED 23:37
PROVIDERS: ADMIT Surgery; ATTEND Surgery
PROC: 0D1N0Z4 Bypass Sigmoid Colon to Cutaneous, Open Approach (ICD-10-PCS; 2017-07-02)
PROC: 0DBN0ZZ Excision of Sigmoid Colon, Open Approach (ICD-10-PCS; principal; 2017-07-02 20:05)
DX: K63.1 Perforation of intestine (nontraumatic) (principal); K66.0 Peritoneal adhesions (postprocedural) (postinfection); Z88.0 Allergy status to penicillin; E78.5 Hyperlipidemia, unspecified; E03.9 Hypothyroidism, unspecified; K59.00 Constipation, unspecified
CPT/HCPCS: 36415; 74177; 81001; 82040; 82150; 82247; 82310; 82374; 82435; 82565; 82947; 83690; 84075; 84132; 84155; 84295; 84450; 84460; 84520; 85025; 86850; 86900; 86901; 88307; 96365; 96368; 96375; 97161; 97605; 97606; 99285; A4371; A4406; C9113; J0131; J0330; J1100; J1170; J1650; J1885; J1956; J2001; J2250; J2270; J2370; J2405; J2550; J2704; J2765; J2795; J3010; J3480; J3490; J7030; J7050; P9045; Q9967

== ENCOUNTER → 2017-07-02 | Outpatient (CLI) | payer OTHER ==
[~2017-07-02] MED LIST: ASPI-1471 PO; DOCU-416 PO; HYDR-4309 PO; LEVO-85 PO; LEVO75TA68 PO; METR-1 PO; PRAV20TA65 PO
== END ==
LOC: AMB 16:27
PROVIDERS: ATTEND Nurse Practitioner
DX: R10.9 Unspecified abdominal pain (principal); R06.00 Dyspnea, unspecified
CPT/HCPCS: A0425; A0427

== ENCOUNTER 2017-07-13 19:56 | Emergency (ER) | payer OTHER ==
--- NOTE | 2017-07-13 20:02 | ER Report ---
History and Physical Time Seen By MD: 20:01 HPI/ROS CHIEF COMPLAINT: concern about no production from colostomy HISTORY OF PRESENT ILLNESS: This is a 62 year old female. She has had a recent sigmoid colectomy with colostomy. She indicates that she has had no production from her colostomy bag this afternoon and was feeling distended. She had movement yesterday. Had gas this morning. Had taken a shower and then had some thick soft stool at about 0900 today. Then nothing since then. She was feeling distended with some diffuse discomfort, but now has no pain. No nausea or vomiting. No fevers or chills. She has had some urinary frequency the last 24 hours, but no dysuria. Her abdominal incision is healing well with a small amount of discharge present on the incision. Allergies: Coded Allergies: Penicillins (Verified Adverse Reaction, Mild, RASH, 07/13/17) Home Meds Active Scripts Hydrocodone Bit/Acetaminophen (NORCO 5-325 TABLET) 1 Each Tablet, 1 EACH PO Q4H Y for PAIN, #30 TAB Prov:TITO FLORES MD 07/08/17 Docusate Sodium (COLACE) 100 Mg Capsule, 100 MG PO BID, #60 CAPSULE Prov:TITO FLORES MD 07/08/17 Metronidazole (FLAGYL) 500 Mg Tablet, 500 MG PO TID, #6 TAB Prov:TITO FLORES MD 07/08/17 Levofloxacin 500 Mg Tab (LEVAQUIN 500 MG TAB) 500 Mg Tablet, 500 MG PO QDAY, #2 TAB Prov:TITO FLORES MD 07/08/17 Reported Medications Aspirin (ASPIR 81) 81 Mg Tablet.dr, 81 MG PO QDAY, TAB 07/02/17 Pravastatin Sodium (PRAVACHOL) 20 Mg Tablet, 40 MG PO QDAY, TAB 07/02/17 Levothyroxine Sodium (SYNTHROID) 75 Mcg Tablet, 75 MCG PO QDAY 07/02/17 Reviewed Nurses Notes: Yes Constitutional Vital Sign - Last 24 Hours 07/13/17 07/13/17 07/13/17 07/13/17 20:01 20:04 20:26 20:31 Temp 98.5 Pulse 86 74 Resp 18 B/P (MAP) 157/82 (107) 157/82 Pulse Ox 96 95 96 O2 Delivery Room Air 07/13/17 07/13/17 07/13/1707/13/18 20:59 21:01 21:34 21:36 Pulse 77 68 B/P (MAP) 137/78 (97) 152/77 (102) Pulse Ox 94 97 07/13/17 07/13/17 22:00 23:22 Pulse 65 B/P (MAP) 135/67 (89) 155/88 (110) Pulse Ox 96 Physical Exam General Appearance: The patient is alert. No acute distress. Eyes: Pupils are equal, round. No pallor, injection or icterus. ENT: Mucous membranes are moist. Normal oral mucosa. Respiratory: Lungs are clear to auscultation. Cardiovascular: Regular rate and rhythm. No murmurs, gallops or rubs. Normal capillary refill. Gastrointestinal: Abdomen is soft. No tenderness to palpation. Nondistended. Normal active bowel sounds. Neurological: Alert and oriented x3. Skin: Warm and dry. Incision is intact with jackie. Small area of serous discharge on lower incision. DIFFERENTIAL DIAGNOSIS: After history and physical exam, differential diagnosis was considered for abdominal distension with discomfort and no production from colostomy for almost 12 hours now, with recent colectomy and colostomy as noted. Medical Decision Making Data Points Result Diagram: 07/13/17202907/13/172029 Laboratory Hematology Test 07/13/17 20:01 07/13/17 20:30 Urine Color Straw Urine Clarity Clear Urine pH 7.0 pH (4.8-9.5) Urine Specific Kermit 1.004 Urine Protein Negative mg/dL (NEGATIVE) Urine Glucose (UA) Negative mg/dL (NEGATIVE) Urine Ketones Negative mg/dL (NEGATIVE) Urine Blood Negative (NEGATIVE) Urine Nitrite Negative (NEGATIVE) Urine Bilirubin Negative (NEGATIVE) Urine Urobilinogen Negative mg/dL (0.2-1.9) Urine Leukocyte Esterase Negative (NEGATIVE) Urine RBC <1 /HPF (0-2/HPF) Urine WBC 1 /HPF (0-5/HPF) Urine Squamous Epithelial Cells Many /LPF (</=FEW) Urine Bacteria Few /HPF (NONE-FEW) Urine Hyaline Casts Few /LPF (NONE-FEW) Urine Mucus None /HPF (NONE-FEW) Red Blood Count 4.28 M/uL (4.17-5.56) Mean Corpuscular Volume 96.3 fL (80.0-96.0) Mean Corpuscular Hemoglobin 33.5 pg (26.0-33.0) Mean Corpuscular Hemoglobin Concent 34.8 g/dL (32.0-36.0) Red Cell Distribution Width 14.0 % (11.5-14.5) Mean Platelet Volume 8.4 fL (7.2-11.1) Neutrophils (%) (Auto) 69.4 % (39.4-72.5) Lymphocytes (%) (Auto) 17.2 % (17.6-49.6) Monocytes (%) (Auto) 9.6 % (4.1-12.4) Eosinophils (%) (Auto) 2.3 % (0.4-6.7) Basophils (%) (Auto) 1.5 % (0.3-1.4) Nucleated RBC Relative Count (auto) 0.0 /100WBC Neutrophils # (Auto) 6.8 K/uL (2.0-7.4) Lymphocytes # (Auto) 1.7 K/uL (1.3-3.6) Monocytes # (Auto) 0.9 K/uL (0.3-1.0) Eosinophils # (Auto) 0.2 K/uL (0.0-0.5) Basophils # (Auto) 0.1 K/uL (0.0-0.1) Nucleated RBC Absolute Count (auto) 0.00 K/uL Sodium Level 140 mmol/L (137-145) Potassium Level 3.7 mmol/L (3.5-5.0) Chloride Level 104 mmol/L (98-107) Carbon Dioxide Level 26 mmol/L (22-31) Blood Urea Nitrogen 10 mg/dl (7-18) Creatinine 0.70 mg/dl (0.52-1.04) Glomerular Filtration Rate Calc > 60.0 Random Glucose 99 mg/dl (75-110) Calcium Level 8.5 mg/dl (8.4-10.2) Total Bilirubin 0.4 mg/dl (0.2-1.3) Aspartate Amino Transf (AST/SGOT) 22 U/L (0-35) Alanine Aminotransferase (ALT/SGPT) 39 U/L (0-56) Alkaline Phosphatase 129 U/L (0-126) Total Protein 6.5 gm/dl (6.3-8.2) Albumin 3.3 g/dl (3.5-5.0) Chemistry Test 07/13/17 20:01 07/13/17 20:30 Urine Color Straw Urine Clarity Clear Urine pH 7.0 pH (4.8-9.5) Urine Specific Kermit 1.004 Urine Protein Negative mg/dL (NEGATIVE) Urine Glucose (UA) Negative mg/dL (NEGATIVE) Urine Ketones Negative mg/dL (NEGATIVE) Urine Blood Negative (NEGATIVE) Urine Nitrite Negative (NEGATIVE) Urine Bilirubin Negative (NEGATIVE) Urine Urobilinogen Negative mg/dL (0.2-1.9) Urine Leukocyte Esterase Negative (NEGATIVE) Urine RBC <1 /HPF (0-2/HPF) Urine WBC 1 /HPF (0-5/HPF) Urine Squamous Epithelial Cells Many /LPF (</=FEW) Urine Bacteria Few /HPF (NONE-FEW) Urine Hyaline Casts Few /LPF (NONE-FEW) Urine Mucus None /HPF (NONE-FEW) White Blood Count 9.7 k/uL (4.5-11.0) Red Blood Count 4.28 M/uL (4.17-5.56) Hemoglobin 14.3 g/dL (12.0-16.0) Hematocrit 41.2 % (34.0-47.0) Mean Corpuscular Volume 96.3 fL (80.0-96.0) Mean Corpuscular Hemoglobin 33.5 pg (26.0-33.0) Mean Corpuscular Hemoglobin Concent 34.8 g/dL (32.0-36.0) Red Cell Distribution Width 14.0 % (11.5-14.5) Platelet Count 306 K/uL (150-450) Mean Platelet Volume 8.4 fL (7.2-11.1) Neutrophils (%) (Auto) 69.4 % (39.4-72.5) Lymphocytes (%) (Auto) 17.2 % (17.6-49.6) Monocytes (%) (Auto) 9.6 % (4.1-12.4) Eosinophils (%) (Auto) 2.3 % (0.4-6.7) Basophils (%) (Auto) 1.5 % (0.3-1.4) Nucleated RBC Relative Count (auto) 0.0 /100WBC Neutrophils # (Auto) 6.8 K/uL (2.0-7.4) Lymphocytes # (Auto) 1.7 K/uL (1.3-3.6) Monocytes # (Auto) 0.9 K/uL (0.3-1.0) Eosinophils # (Auto) 0.2 K/uL (0.0-0.5) Basophils # (Auto) 0.1 K/uL (0.0-0.1) Nucleated RBC Absolute Count (auto) 0.00 K/uL Glomerular Filtration Rate Calc > 60.0 Calcium Level 8.5 mg/dl (8.4-10.2) Total Bilirubin 0.4 mg/dl (0.2-1.3) Aspartate Amino Transf (AST/SGOT) 22 U/L (0-35) Alanine Aminotransferase (ALT/SGPT) 39 U/L (0-56) Alkaline Phosphatase 129 U/L (0-126) Total Protein 6.5 gm/dl (6.3-8.2) Albumin 3.3 g/dl (3.5-5.0) Urinalysis Test 07/13/17 20:01 Urine Color Straw Urine Clarity Clear Urine pH 7.0 pH (4.8-9.5) Urine Specific Kermit 1.004 Urine Protein Negative mg/dL (NEGATIVE) Urine Glucose (UA) Negative mg/dL (NEGATIVE) Urine Ketones Negative mg/dL (NEGATIVE) Urine Blood Negative (NEGATIVE) Urine Nitrite Negative (NEGATIVE) Urine Bilirubin Negative (NEGATIVE) Urine Urobilinogen Negative mg/dL (0.2-1.9) Urine Leukocyte Esterase Negative (NEGATIVE) Urine RBC <1 /HPF (0-2/HPF) Urine WBC 1 /HPF (0-5/HPF) Urine Squamous Epithelial Cells Many /LPF (</=FEW) Urine Bacteria Few /HPF (NONE-FEW) Urine Hyaline Casts Few /LPF (NONE-FEW) Urine Mucus None /HPF (NONE-FEW) EKG/Imaging Imaging CT of the abdomen and pelvis with contrast: Indication: Recent history of colectomy with colostomy. Now experiencing decreased output. Technique: Helical CT was performed through the abdomen and pelvis following IV contrast enhancement with 75 cc of Isovue-370. Multiplanar reconstructions are reviewed. One of the following dose optimization techniques was utilized in the performance of this exam: Automated exposure control; adjustment of the mA and/ or kV according to the patient's size; or use of an iterative reconstruction technique. Specific details can be referenced in the facility's radiology CT exam operational policy. Comparison: 07/02/2017 Lower lung renee: There are minimal linear parenchymal opacities at the bases, compatible with subsegmental atelectasis. No parenchymal consolidation or pleural effusion is identified. Liver: Normal in size, shape, and density. There is uniform enhancement of the venous structures. Gallbladder/biliary tree: The gallbladder is normal in size and homogeneous in density. The bile ducts are not dilated. Pancreas: Normal in size, shape, and density. Spleen: Normal in size, shape, and density. Adrenal glands: Within normal limits. Kidneys/urinary bladder: The kidneys are normal in size, shape, and density. There are no signs of obstructive uropathy. There is a tiny amount of air in the bladder lumen, presumably related to recent catheterization. The bladder is otherwise homogeneous and unremarkable. There is no thickening of the wall. Intestinal structures: In the interval, a resection of the sigmoid colon was performed, and there is now evidence of a diverting colostomy in the left lower quadrant. The ostomy site appears unremarkable. There are no signs of localized inflammation or fluid collection. The colon proximal to the ostomy site appears unremarkable. There are no signs for obstruction or dilatation. The appendix appears normal. The small bowel loops are normal in caliber and appear unremarkable. Pelvis: The uterus and adnexal structures are unremarkable and unchanged. Aorta and vascular structures: Minimal atherosclerotic calcification is present. There are no signs of aneurysm. Ascites or fluid collections: No pathologic fluid collection or free fluid is identified. There are no signs of residual pneumoperitoneum. Skeletal structures: Intact and unchanged. Impression: The colostomy site in the left lower quadrant appears unremarkable. There are no signs of localized inflammation or fluid collection. There are no signs of colonic obstruction. There is no evidence of fluid collection, free fluid, or residual pneumoperitoneum in the abdomen or pelvis. Report Dictated By: Gopi Cabrera MD at 07/13/2017 10:45 PM ED Course/Re-evaluation Clinical Indication for ER IV: IV Access ED Course Labs are unremarkable. Imaging negative as noted above. Discussed the case with Dr. Flores as well. Discussed with the patient. She will continue to use Colace and add Milk of Magnesia and prune juice. Follow-up with Dr. Flores as planned. Decision to Disposition Date: Jul 13, 2017 Decision to Disposition Time: 23:13 Depart Departure Latest Vital Signs Vital Signs Date Time Temp Pulse Resp B/P (MAP) Pulse Ox O2 Delivery O2 Flow Rate FiO2 07/13/17 23:22 65 155/88 (110) 96 07/13/17 20:04 98.5 18 Room Air Impression: Primary Impression: Abdominal discomfort Additional Impression: Colostomy complication, unspecified Condition: Improved Disposition: HOME OR SELF-CARE Patient Instructions: Colostomy Care (ED) Additional Instructions: Keep taking your Colace. Take some Milk of Magnesia and Prune juice to help move the bowels. Keep your appointment on Thursday with Dr. Flores. Problem Qualifiers ANUJ WILSON MD Jul 13, 2017 20:01
[2017-07-13 20:38] LABS: PLATELET COUNT, AUTOMATED 306 K/uL (150-450)
[2017-07-13] MEDS ORDERED: IOPAMIDOL 76% 75 ML INFUS BTL 75 ML ONE (21:15)
--- NOTE | 2017-07-13 23:03 | RADIOLOGY IMAGING REPORT ---
FACILITY: [facility] PATIENT NAME: Isabela Rojas : 1955 MR: [id number] V: [id number] EXAM DATE: ORDERING PHYSICIAN: ANUJ WILSON TECHNOLOGIST: Location: [facility] [place] Patient: Isabela Rojas : 1955 Visit/Account:[id number] Date of Sevice: 07/13/2017 CT of the abdomen and pelvis with contrast: Indication: Recent history of colectomy with colostomy. Now experiencing decreased output. Technique: Helical CT was performed through the abdomen and pelvis following IV contrast enhancement with 75 cc of Isovue-370. Multiplanar reconstructions are reviewed. One of the following dose optimization techniques was utilized in the performance of this exam: Autom ated exposure control; adjustment of the mA and/or kV according to the patient's size; or use of an i terative reconstruction technique. Specific details can be referenced in the facility's radiology C T exam operational policy. Comparison: 07/02/2017 Lower lung renee: There are minimal linear parenchymal opacities at the bases, compatible with subse gmental atelectasis. No parenchymal consolidation or pleural effusion is identified. Liver: Normal in size, shape, and density. There is uniform enhancement of the venous structures. Gallbladder/biliary tree: The gallbladder is normal in size and homogeneous in density. The bile duct s are not dilated. Pancreas: Normal in size, shape, and density. Spleen: Normal in size, shape, and density. Adrenal glands: Within normal limits. Kidneys/urinary bladder: The kidneys are normal in size, shape, and density. There are no signs of ob structive uropathy. There is a tiny amount of air in the bladder lumen, presumably related to recent catheterization. The bladder is otherwise homogeneous and unremarkable. There is no thickening of the wall. Intestinal structures: In the interval, a resection of the sigmoid colon was performed, and there is now evidence of a diverting colostomy in the left lower quadrant. The ostomy site appears unremarkabl e. There are no signs of localized inflammation or fluid collection. The colon proximal to the ostomy site appears unremarkable. There are no signs for obstruction or dilatation. The appendix appears normal. The small bowel loops are normal in caliber and appear unremarkable. Pelvis: The uterus and adnexal structures are unremarkable and unchanged. Aorta and vascular structures: Minimal atherosclerotic calcification is present. There are no signs o f aneurysm. Ascites or fluid collections: No pathologic fluid collection or free fluid is identified. There are n o signs of residual pneumoperitoneum. Skeletal structures: Intact and unchanged. Impression: The colostomy site in the left lower quadrant appears unremarkable. There are no signs of localized inflammation or fluid collection. There are no signs of colonic obstruction. There is no evidence of fluid collection, free fluid, or residual pneumoperitoneum in the abdomen or pelvis. Report Dictated By: Gopi Cabrera MD at 07/13/2017 10:45 PM Report E-Signed By: Gopi Cabrera MD at 07/13/2017 11:00 PM [id number]
[2017-07-13 23:22] VITALS: BP 155/88
== END 2017-07-13 23:25 | disposition home or self-care (01) ==
LOC: ER 20:12
DX: R10.9 Unspecified abdominal pain (principal); Z93.3 Colostomy status
CPT/HCPCS: 74177; 81001; 85025; 99284; Q9967; 82040; 82247; 82310; 82374; 82435; 82565; 82947; 84075; 84132; 84155; 84295; 84450; 84460; 84520

== ENCOUNTER → 2017-07-15 | Outpatient (CLI) | payer OTHER | LOC: LAB 12:04 | PROVIDERS: ATTEND Surgery | DX: E03.9 Hypothyroidism, unspecified (principal) | CPT/HCPCS: 36415; 84443 ==

== ENCOUNTER 2017-09-23 01:11 | Day surgery (SDC) | payer OTHER ==
[~2017-09-23] VITALS: Ht 170.2 cm; Wt 77.1 kg
[~2017-09-23 01:11] MED LIST changes: +GOLYTE PO; +METH454P5 PO
[2017-09-23] MEDS ORDERED: LIDOCAINE MPF 1% 5 ML VIAL ONE (06:53)
[2017-09-23] MEDS ORDERED: PROPOFOL EMUL(*) 10MG/ML 20 ML 60 ML ONE (06:53)
[2017-09-23 07:38] VITALS: BP 133/74
[2017-09-23 09:05] VITALS: BP 92/51
--- NOTE | 2017-09-23 09:13 | Short(Outpt) Discharge Summary ---
Discharge Summary Reason for Hosp/Final Diag: (1) Colostomy in place Status: Chronic Hospital Course & Plan: Colonoscopy through coloscopy completed without problems. (2) Large bowel perforation Status: Resolved Departure Discharge to: Home, Self Care Discharge Instructions Home Meds Active Scripts Peg/Electrolytes (GOLYTELY SOLUTION) 4,000 Ml Soln, 1 GAL PO ONCE, #1 GAL 0 Refills Prov:TANA KANG MD 08/25/17 Reported Medications Methylcellulose (With Sugar) (CITRUCEL POWDER) 454 Gm Powder, 454 GM PO QDAY 08/25/17 Docusate Sodium (COLACE) 100 Mg Capsule, 100 MG PO BID, CAPSULE 08/25/17 Aspirin (ASPIR 81) 81 Mg Tablet.dr 81 MG PO QDAY, TAB 07/02/17 Pravastatin Sodium (PRAVACHOL) 20 Mg Tablet, 40 MG PO QDAY, TAB 07/02/17 Levothyroxine Sodium (SYNTHROID) 75 Mcg Tablet, 75 MCG PO QDAY 07/02/17 Follow up Referrals: General Surgery - 10/12/17 @ Surgery, General with Tana Kang Md You have a follow up appointment scheduled with Dr. Kang on 10/12/17, at 11:00am. Diet: Regular Activity: As Tolerated Special Instructions: Your colonoscopy was completed without problems and your prep was excellent (Good Job!!). I didn't find an polyps, cancers, or other abnormalities. Don't be alarmed if you see some blood in your stoma bag or even from your rectum from irritation from the scope but this should resolve over the next few days. I will see you back in my office and we can discuss the surgery to reconnect your colon back to your rectum at that time. TANA KANG MD Sep 23, 2017 09:13
[2017-09-23 09:15] VITALS: BP 86/53
[2017-09-23 09:23] VITALS: BP 109/67
[2017-09-23 09:24] VITALS: BP 101/71
[2017-09-23] MEDS ORDERED: NORMOSOL R SOLN(*) 1000 ML BAG 1,000 ML IV PRN (13:00)
[2017-09-23] MEDS ORDERED: LIDOCAINE/SOD BICARB 8.4% SYR ID ONE (13:00)
== END 2017-09-23 10:25 | disposition home or self-care (01) ==
LOC: OR 01:11
PROVIDERS: ATTEND Surgery
DX: Z12.11 Encounter for screening for malignant neoplasm of colon (principal); K57.30 Diverticulosis of large intestine without perforation or abscess without bleeding
CPT/HCPCS: 00812; 44388; J2001; J2704

== ENCOUNTER → 2017-12-08 | Outpatient (CLI) | payer OTHER ==
[~2017-12-08] MED LIST changes: +SINCALIDE 5 MCG VIAL INJ ONE; +WATER FOR INJ,STERILE 20 ML 20 ML ONE
--- NOTE | 2017-12-08 11:29 | RADIOLOGY IMAGING REPORT ---
FACILITY: [facility] PATIENT NAME: Isabela Rojas : 1955 MR: [id number] V: [id number] EXAM DATE: ORDERING PHYSICIAN: TANA KANG TECHNOLOGIST: Location: [facility] Patient: Isabela Rojas : 1955 Visit/Account:[id number] Date of Sevice: 12/08/2017 HIDA W/CCK HISTORY: Right upper quadrant pain TECHNIQUE: 6.5 mCi Tc99m Hepatolite was injected intravenously. Multiple sequential gamma camera omega ges of the abdomen were obtained for 55 minutes. At that time, Kinevac was injected intravenously and an additional 30 minutes of gamma camera imaging data was acquired. A computer-generated region of i nterest was placed around the gallbladder and time-activity curve for the gallbladder was derived. Th e gallbladder ejection fraction was calculated. COMPARISON: None. FINDINGS: Liver uptake and excretion: Unremarkable. Time to appearance: Bile ducts: 7 minutes. Gallbladder: 42 minutes. Duodenum: 9 minutes. Duodenal-gastric reflux / extravasation: None. Post IV Kinevac: Normal and prompt contraction of the gallbladder. Patient symptoms: The patient experienced abdominal pain following CCK injection Ejection fraction = 95% (normal range >35%). IMPRESSION: Gallbladder ejection fraction of 95% Report Dictated By: Katie Haney MD at 12/08/2017 11:23 AM Report E-Signed By: Katie Haney MD at 12/08/2017 11:25 AM WSN:[email or web address]
== END ==
LOC: NUC 01:50
PROVIDERS: ATTEND Surgery
DX: R10.11 Right upper quadrant pain (principal)
CPT/HCPCS: 78226; A9537; J2805

== ENCOUNTER → 2017-12-23 | Outpatient (CLI) | payer OTHER ==
[~2017-12-23] MED LIST changes: -SINCALIDE 5 MCG VIAL INJ ONE; -WATER FOR INJ,STERILE 20 ML 20 ML ONE
--- NOTE | 2017-12-23 11:07 | RADIOLOGY IMAGING REPORT ---
FACILITY: [facility] PATIENT NAME: Isabela Rojas : 1955 MR: [id number] V: [id number] EXAM DATE: ORDERING PHYSICIAN: TANA KANG TECHNOLOGIST: Location: [facility] [place] Patient: Isabela Rojas : 1955 Visit/Account:[id number] Date of Sevice: 12/23/2017 GALLBLADDER HISTORY: Prandial pain COMPARISON: Hepatobiliary scan December 08, 2017 FINDINGS: Gallbladder: Gallbladder appears grossly unremarkable. By technologist notation examination was diff icult due to bowel gas adjacent to the gallbladder Liver: Negative. Common duct: Normal, 4.1 mm diameter. Pancreas: Partially obscured by bowel, visualized aspects unremarkable. Right kidney: Right kidney appears unremarkable measuring 10.2 cm in length Upper abdominal aorta and IVC: Patent. Ascites: None visualized. IMPRESSION: Gallbladder appears grossly unremarkable although by technologist notation examination was difficult due to bowel gas adjacent to the gallbladder Report Dictated By: Katie Haney MD at 12/23/2017 11:02 AM Report E-Signed By: Katie Haney MD at 12/23/2017 11:03 AM WSN:[email or web address]
== END ==
LOC: US 01:45
PROVIDERS: ATTEND Surgery
DX: R10.11 Right upper quadrant pain (principal)
CPT/HCPCS: 76705

== ENCOUNTER 2018-01-14 00:51 | Inpatient (IN) | payer OTHER ==
[2018-01-14] VITALS (9 sets, daily range): BP systolic 92–136; BP diastolic 47–89
[~2018-01-14] VITALS: Ht 170.2 cm; Wt 86.2 kg
[~2018-01-14 00:51] MED LIST changes: -HYDR-4309 PO; +HYDR-653 PO; +MAGN296S38 PO; +POLY119P23 PO
[2018-01-14] MEDS ORDERED: ROPIVACAINE 0.5% 20 ML VIAL ONE (08:24)
[2018-01-14] MEDS ORDERED: INDOCYANINE GREEN 25 MG VIAL IVP ONE (08:24)
[2018-01-14 09:56] LABS: PLATELET COUNT, AUTOMATED 182 K/uL (150-450)
[2018-01-14] MEDS ORDERED: DEXAMETHASONE SOD PHOS 10MG/ML ONE (10:47)
[2018-01-14] MEDS ORDERED: fentaNYL CITR 100 MCG/2 ML AMP ONE ×5 (10:47→19:44)
[2018-01-14] MEDS ORDERED: ONDANSETRON 4 MG/2 ML VIAL ONE (10:47)
[2018-01-14] MEDS ORDERED: ROCURONIUM BROM 10 MG/ML 10 ML ONE (10:47)
[2018-01-14] MEDS ORDERED: PROPOFOL EMUL(*) 10MG/ML 20 ML 20 ML ONE (10:47)
[2018-01-14] MEDS ORDERED: LIDOCAINE MPF 1% 5 ML VIAL ONE (10:47)
[2018-01-14] MEDS ORDERED: NORMOSOL R SOLN(*) 1000 ML BAG 1,000 ML IV PRN (11:00)
[2018-01-14] MEDS ORDERED: ACETAMINOPHEN 500 MG TAB PO ONE (11:00)
[2018-01-14] MEDS ORDERED: LEVOFLOXACIN/D5W*500 MG/100 ML 100 ML IVPB ONE (11:00)
[2018-01-14] MEDS ORDERED: LIDOCAINE/SOD BICARB 8.4% SYR ID ONE (11:00)
[2018-01-14] MEDS ORDERED: MIDAZOLAM 2 MG/2 ML VIAL IVP PRN (11:00)
[2018-01-14] MEDS ORDERED: metroNIDAZOLE* 500MG/100ML BAG 100 ML IVPB ONE (11:00)
[2018-01-14] MEDS ORDERED: PREGABALIN 150 MG CAPSULE PO ONE (11:00)
[2018-01-14] MEDS ORDERED: FAMOTIDINE 20 MG TAB PO ONE (11:00)
[2018-01-14] MEDS ORDERED: MIDAZOLAM 2 MG/2 ML VIAL ONE (11:41)
[2018-01-14] MEDS ORDERED: CELLULOSE HEMOSTAT 1 EACH PKT OP-SITE ONE (13:45)
[2018-01-14] MEDS ORDERED: HYDROmorphone PCA 6 MG/30 ML IV PRN (18:30)
[2018-01-14] MEDS ORDERED: FLUSH 10 ML SYR IVP PRN (18:30)
[2018-01-14] MEDS ORDERED: NALOXONE HCL 0.4 MG/ML VIAL IVP PRN (18:30)
[2018-01-14] MEDS ORDERED: ACETAMINOPHEN(*)1000 MG/100 ML 100 ML IVPB ONE (18:34)
--- NOTE | 2018-01-14 19:14 | Post Operative Progress Note ---
Post Operative Progress Note Date: Jan 14, 2018 Time: 18:52 Surgeon: Tuan Dictation number: [id number] Anesthesia: GETA by Dr. Beach Pre-Op Diagnosis: Colostomy Post-Op Diagnosis: HUSSAIN Findings: C/W dx Procedure(s): Robotic colostomy takedown Robotic splenic flexure mobilization Laparoscopic Colorectal anastomosis Specimen Removed:(May be N/A): Rectosigmoid junction Anastomotic donuts Complications: None Fluids: IVF: 3.8L crystalloid UOP: 200mL Estimated Blood Loss: 60mL Date OP Note Dictated: Jan 14, 2018 Time OP Note Dictated: 19:04 TANA KANG MD Jan 14, 2018 19:14
[2018-01-14] MEDS: metroNIDAZOLE* 500MG/100ML BAG 100 ML IVPB SCH (19:30)
[2018-01-14] MEDS: NS(*) 0.9% 1000 ML BAG 1,000 ML IV PRN (20:27)
[2018-01-14] MEDS: ONDANSETRON 4 MG/2 ML VIAL IVP PRN (20:35)
--- NOTE | 2018-01-14 21:41 | OPERATIVE REPORT 1 ---
EVENT DATE: January 14, 2018 SURGEON: Shahram Dickerson MD ANESTHESIOLOGIST: Venkat Beach MD ANESTHESIA: General endotracheal anesthesia. SENIOR LEAD SOFTWARE ENGINEER: Romina Combs MD PREOPERATIVE DIAGNOSIS Colostomy. POSTOPERATIVE DIAGNOSIS Colostomy. PROCEDURES PERFORMED 1. Robotic colostomy takedown. 2. Robotic splenic flexure mobilization. 3. Laparoscopic colorectal anastomosis. COMPLICATIONS None. CONDITION Stable. BLOOD LOSS 60 mL URINE OUTPUT 200 mL INTRAVENOUS FLUIDS Crystalloid 3.8 L. SPECIMENS 1. Rectosigmoid junction. 2. Anastomotic donuts. INDICATIONS This is a 62-year-old female who several months ago presented to the Emergency Department and was found to have colonic perforation. She was taken to surgery by Dr. Flores, and a Kel procedure was performed. He was not certain of the etiology of the perforation, although she does have chronic constipation, and he noted that she had a lot of hard stool throughout her colon and felt that possibly the severe constipation had led to the perforation. Because of this, he did not want to chance doing an anastomosis at that time and so gave her a colostomy. He has since moved out of town, and so she has come to my office and is requesting to have the colostomy reversed. DESCRIPTION OF PROCEDURE The patient was brought to the operating room and placed supine on the operating table. General endotracheal anesthesia was administered, and her colostomy was sewn shut with a 2-0 silk suture. Her abdomen was prepped and draped in a sterile fashion. Timeout was completed. I then injected 0.5% ropivacaine plain into the right subcostal skin and then made a 5 mm incision in this area. I then used the Veress needle and insufflated the abdomen to 15 mmHg. I then used the 5 mm optical trocar and inserted the camera into the abdomen under direct visualization without any problems. I then looked for adhesions, but remarkably, there were not any adhesions. I then placed three 8 mm ports in a diagonal from the epigastric midline to the right lower quadrant and then a fourth 12 mm port just medial to the right anterior superior iliac spine. I then had the patient placed in steep Trendelenburg and planed towards her right to move the viscera away from the left side of the abdomen. I then brought in the robot, docked it, and targeted it. I inserted the instruments and then went to the console. I then turned my attention to the descending colon and colostomy. There were really no adhesions to the colon at all, and so I started with the splenic flexure. I took the greater omentum down off the transverse colon all the way from the mid transverse colon to the descending colon and then divided the splenocolic and splenophrenic ligaments. I then divided the lateral attachments of the descending colon and it from the abdominal wall and retroperitoneum. I medialized the entire descending colon. After some work, the entire splenic flexure and descending were mobilized, providing more than adequate colon. I did not divide the inferior mesenteric artery or vein in this mobilization. I then turned my attention down to the patient's pelvis and identified the sigmoid colon. I used the vessel sealer to come across the mesentery of the sigmoid colon all the way down to the peritoneal reflection. I divided the peritoneum circumferentially and just got into some of the extraperitoneal fat and then found a good spot to divide the rectum at this point. I cleaned off the rectum circumferentially, and once it had been isolated, I came across the upper rectum with the Endo CINDY stapler with a green load. I then irrigated and dried the pelvis. There was no active bleeding. The staple line looked good. I then scrubbed back in and took down the colostomy by anesthetizing the skin around the stoma and then using a scalpel to separate the mucosa from the skin. I then dissected through the subcutaneous fat until I got into the peritoneal cavity and then it completely. I then removed the sutures from the colostomy, and really, the colostomy looked very good, nice and healthy, without any strictures or anything. We used the EEA sizers and were able to even get a 33 mm in, but that one had quite a bit of tension, so we went with a 29 mm EEA stapler. The anvil was placed in the colon and secured into this colon with a pursestring 2-0 silk suture. This was then dropped back into the abdominal cavity, and a wound protector was inserted through the colostomy wound. The specimen which included the rectosigmoid junction was removed from the patient's abdomen and passed off the field. We then went back in laparoscopically and made sure that the descending colon was able to reach down into the pelvis, and it reached with colon to spare and absolutely no tension. I used Firefly, and ICG was injected by the anesthesiologist. We were able to see the entire colon and the rectal stump glowing with good perfusion. I then went between the patient's legs while Dr. Combs remained scrubbed in laparoscopic, and I inserted the 25 mm EEA stapler into the rectum and engaged it with the staple line. I then advanced the trocar through the rectum, and she was able to engage the anvil to the trocar and locked it into place. I then closed the anvil, then let the red line get into the green zone on the stapler, then released the safety, and fired the stapler. I then opened the anvil one turn and then was able to gently twist the EEA stapler out. We then filled the patient's pelvis with saline, and I inserted the proctoscope into her rectum, inflated the rectum, and there was no bubbling. I was also able to visualize the anastomosis through the proctoscope, and it was well perfused with no active bleeding and looked to be intact. I then desufflated the rectum and removed the proctoscope. We then closed the fascia on the colostomy takedown wound with running #1 PDS sutures. They closed nicely without tension. Lastly, with the camera in and her abdomen insufflated, I used the Foster-Nikhil suture passer and placed a [id number] 0 Vicryl suture through the fascia and the 12 mm port site in the right lower quadrant. I tied this down with good reapproximation in the fascia over in this area. We desufflated the abdomen, removed all the ports, and then closed the skin at each port site with 4-0 Monocryl subcuticular sutures. I then closed the colostomy skin wound with a single staple and then passed a 1/4-inch Shokan drain into this wound to keep the skin open to allow it to heal without infection. I sewed the Dejah drain to her skin with a 3-0 silk suture. I then cleaned and dried the skin, and Steri-Strips were applied to the incisions, followed by sterile surgical dressings. The colostomy takedown wound was covered with dry 4 x 4 gauze which was taped into place. The patient was awakened, extubated in the operating room, and transported to the recovery room in stable condition having tolerated the procedure without any apparent problems. KATHRYN
[2018-01-14] MEDS ORDERED: NS(*) 0.9% 250 ML BAG 250 ML ONE (23:23)
[2018-01-14] MEDS: ACETAMINOPHEN(*)1000 MG/100 ML 100 ML IVPB SCH (23:29)
[2018-01-15] VITALS (14 sets, daily range): BP systolic 79–102; BP diastolic 47–60
[2018-01-15] MEDS: metroNIDAZOLE* 500MG/100ML BAG 100 ML IVPB SCH ×4 (01:29→19:34)
[2018-01-15] MEDS: ACETAMINOPHEN(*)1000 MG/100 ML 100 ML IVPB SCH ×3 (05:22→17:57)
[2018-01-15] MEDS: NS(*) 0.9% 1000 ML BAG 1,000 ML IV PRN ×2 (05:22→15:52)
[2018-01-15 05:46] LABS: PLATELET COUNT, AUTOMATED 138 K/uL (150-450)
[2018-01-15] MEDS: ONDANSETRON 4 MG/2 ML VIAL IVP PRN ×2 (05:53→14:07)
--- NOTE | 2018-01-15 07:21 | General Surgery Progress Note ---
Subjective Progress Notes Subjective Having some nausea this morning. O/W, good pain control. Feels her "intestines working." No flatus or BM yet. Physical Exam Vital Signs Date Time Temp Pulse Resp B/P (MAP) Pulse Ox O2 Delivery O2 Flow Rate FiO2 01/15/18 05:25 16 98 01/15/18 03:30 59 88/51 (63) Nasal Cannula 1.0 01/15/18 01:30 97.4 Intake and Output 01/15/18 06:59 Intake Total 4300 ml Output Total 675 ml Balance 3625 ml Intake Oral 0 ml IV Total 4300 ml Output Urine Total 675 ml General Appearance: Alert, Awake, No Acute Distress, Afebrile GI: Other (soft, appropriate postop TTP, dressings look good. There is dry staining on dressing over colostomy takedown wound.) Extremities: Warm, Perfused Result Diagram: 01/15/18 0534 01/15/18 0534 Assessment and Plan Problems: (1) Colostomy in place Status: Chronic Assessment & Plan: 01/15/18: POD#1 s/p robotic colostomy takedown with mobilization of splenic flexure. Having some nausea this morning with low BPs overnight. Will follow this today. She thinks getting something in her stomach might help. Will try low volume clear diet today. Pt advised to take it slow. PPI, Lovenox for prophylaxis. Ambulate, IS, pulmonary hygiene. Condition Stable Time Spent: < 30 min Exam Sepsis Risk: No Definite Risk TANA KANG MD Jan 15, 2018 07:21
[2018-01-15] MEDS: PANTOPRAZOLE SOD 40 MG IV VIAL IVP SCH (08:55)
[2018-01-15] MEDS: PRAVASTATIN SOD 20 MG TAB PO SCH (08:55)
[2018-01-15] MEDS: LEVOTHYROXINE SOD 0.075 MG TAB PO SCH (08:55)
[2018-01-15] MEDS: ENOXAPARIN 40 MG/0.4ML SYR SC SCH (08:58)
[2018-01-15] MEDS ORDERED: LEVOFLOXACIN/D5W*500 MG/100 ML 100 ML IVPB SCH (10:00)
--- NOTE | 2018-01-15 15:18 | Medical Nutrition Therapy ---
Nutrition Anthropometrics Height (Inches): 67.00 Height (Calculated Centimeters: 170.652232 Weight (Pounds): 190 Weight (Calculated Kilograms): 86.183 Sudeep Nutrition Score: Probably Inadequate Sudeep Nutrition Risk Score: 15 Dietary Referral Nutrition Risk Factors: Nutrition Risk Comment: Pt sleeping from Surgery. Unable to gain information. Physical Findings Physical Appearance: Overweight BMI 25-29 Skin Appearance Skin Appearance: Edema Edema Location Modifier: Edema Location: Type of Edema: Degree of Edema: Gastrointestinal Symptoms GI Symtoms: Nausea Tube Present: Bowel Sounds: Recent Bowel Pattern: Stool Characteristics: Nutritional Diagnosis Nutritional Risk Acuity 3: Nausea Nutritional Acuity: 2-Moderate (colostomy takedown) Nutrition Diagnosis: Altered GI Function Nutrition Etiology: Physiological Causes Nutrition Problem/Etiology/Sym: AEB colostomy takedown Energy Requirement: 2100 (M-StJ X 1.1SF) Protein Requirement: 86 (1gm/kg) Fluid Requirement: 2580 (30ml/kg) Diet Type: Clear Liquids Nutrition Intervention: Incr diet as tolerated Nutrition Monitoring & Eval Nutrition Goals: Eat 75-100% Meal RD Patient Assessment Time: [address] Assessment Type: RD Assessment Patient Nutrition Acuity: 2-Moderate Follow Up Date: Jan 18, 2018 Nutritional Comment: 01/15 Pt admitted for colostomy takedown. Pt on clear liquid diet. Pt has hypoactive bowels but no flatus at this time. Pt reporting nausea. Will cont to monitor. KANWAL BARNES Jan 15, 2018 15:18
[2018-01-15] MEDS ORDERED: LR(*) 1000 ML BAG 2,585.49 ML IV ONE (16:25)
[2018-01-15] MEDS ORDERED: MORPHINE 1 MG/ML 30 ML PCA IV PRN (16:35)
[2018-01-15] MEDS ORDERED: SCOPOLAMINE 1.5 MG PATCH TD ONE (16:35)
[2018-01-15] MEDS ORDERED: NALOXONE HCL 0.4 MG/ML VIAL IVP PRN (16:35)
[2018-01-15] MEDS: KETOROLAC 30 MG/ML VIAL IVP SCH (17:31)
[2018-01-16] VITALS (7 sets, daily range): BP systolic 89–121; BP diastolic 55–64
[2018-01-16] MEDS: ACETAMINOPHEN(*)1000 MG/100 ML 100 ML IVPB SCH ×4 (00:10→18:01)
[2018-01-16] MEDS: KETOROLAC 30 MG/ML VIAL IVP SCH ×4 (00:10→18:01)
[2018-01-16] MEDS: metroNIDAZOLE* 500MG/100ML BAG 100 ML IVPB SCH ×4 (01:07→23:48)
[2018-01-16] MEDS: NS(*) 0.9% 1000 ML BAG 1,000 ML IV PRN ×2 (05:54→14:37)
--- NOTE | 2018-01-16 08:48 | General Surgery Progress Note ---
Subjective Progress Notes Subjective I feel BONITA much better today! Physical Exam Vital Signs Date Time Temp Pulse Resp B/P (MAP) Pulse Ox O2 Delivery O2 Flow Rate FiO2 01/16/18 05:49 18 96 01/16/18 05:42 98.3 49 114/64 (81) Nasal Cannula 0.5 Intake and Output 01/16/18 06:59 Intake Total 2750 ml Output Total 725 ml Balance 2025 ml Intake Oral 0 ml IV Total 2750 ml Output Urine Total 725 ml General Appearance: Alert, Awake Cardiovascular: Regular Rate and Rhythm Respiratory: Clear to Auscultation GI: Other (Dressings in place with dots of drainage except left lower quadrant fairly blood stained, quiet.) Extremities: Soft and Non Tender Result Diagram: 01/15/1834 01/15/18533 Assessment and Plan Problems: (1) Colostomy in place Status: Chronic Assessment & Plan: 01/15/18: POD#1 s/p robotic colostomy takedown with mobilization of splenic flexure. Having some nausea this morning with low BPs overnight. Will follow this today. She thinks getting something in her stomach might help. Will try low volume clear diet today. Pt advised to take it slow. PPI, Lovenox for prophylaxis. Ambulate, IS, pulmonary hygiene. 01/16/18 Patient looks remarkably better today with no further nausea or vomiting and pain is improved. Not taking clear liquids well but no vomiting. Encouraged ambulation and IS. I will check CBC in am. Also, blood pressure is slowly trending up. I will continue to monitor. Exam Sepsis Risk: No Definite Risk ALVINA KNUTSON MD Jan 16, 2018 08:47
[2018-01-16] MEDS: ENOXAPARIN 40 MG/0.4ML SYR SC SCH (08:54)
[2018-01-16] MEDS: PANTOPRAZOLE SOD 40 MG IV VIAL IVP SCH (08:54)
[2018-01-16] MEDS: LEVOTHYROXINE SOD 0.075 MG TAB PO SCH (08:54)
[2018-01-16] MEDS: PRAVASTATIN SOD 20 MG TAB PO SCH (08:55)
[2018-01-16] MEDS ORDERED: LEVOFLOXACIN/D5W*500 MG/100 ML 100 ML IVPB SCH (10:00)
[2018-01-16] MEDS ORDERED: IV BOLUS 500 ML IVSOL IV ONE (13:40)
--- NOTE | 2018-01-16 16:04 | Antimicrobial Stewardship ---
Antimicrobial Time Out Antimicrobial Stewardship MD Service: Other (GENERAL SURGERY) Indications: Other (POST OP ) Antimicrobial Used METRONIDAZOLE 500MG IV Start Date: Jan 14, 2018 Culture Results: N/A (POST OP) Eligible for PO Conversion Eligable for PO Conversion: No (TAKING CLEAR LIQUIDS ONLY) Reviewed with Provider Reviewed w/ Provider on Rounds: Yes Date Reviewed w/ Provider: Jan 16, 2018 Comments Comments Patient was on metronidazole 500mg iv q6h post op. I contacted Dr Joshi and recommended dose frequency change to q8h based on indication. Dr Joshi agreed to frequency change. Continue metronidazole 500 iv q8h (patient is on clear liquid diet only) SUJEY BOO Jan 16, 2018 16:04
[2018-01-16] MEDS: ONDANSETRON 4 MG/2 ML VIAL IVP PRN (18:01)
[2018-01-17] MEDS: KETOROLAC 30 MG/ML VIAL IVP SCH ×4 (00:45→17:29)
[2018-01-17] MEDS: ACETAMINOPHEN(*)1000 MG/100 ML 100 ML IVPB SCH ×4 (00:45→17:30)
[2018-01-17] MEDS: NS(*) 0.9% 1000 ML BAG 1,000 ML IV PRN ×2 (00:50→02:55)
[2018-01-17 04:29] VITALS: BP 113/63
[2018-01-17] MEDS: metroNIDAZOLE* 500MG/100ML BAG 100 ML IVPB SCH ×3 (06:03→22:33)
[2018-01-17 06:34] LABS: PLATELET COUNT, AUTOMATED 124 K/uL (150-450)
[2018-01-17 07:12] VITALS: BP 115/62
[2018-01-17] MEDS: ENOXAPARIN 40 MG/0.4ML SYR SC SCH (09:33)
[2018-01-17] MEDS: PRAVASTATIN SOD 20 MG TAB PO SCH (09:33)
[2018-01-17] MEDS: PANTOPRAZOLE SOD 40 MG IV VIAL IVP SCH (09:33)
[2018-01-17] MEDS: LEVOTHYROXINE SOD 0.075 MG TAB PO SCH (09:33)
[2018-01-17 11:08] VITALS: BP 120/79
[2018-01-17] MEDS: ONDANSETRON 4 MG/2 ML VIAL IVP PRN (11:25)
--- NOTE | 2018-01-17 11:26 | General Surgery Progress Note ---
Subjective Progress Notes Subjective "I'm feeling better than last night but still a little bit nauseous." Patient Complains of: Gastrointestinal: Nausea Physical Exam Vital Signs Date Time Temp Pulse Resp B/P (MAP) Pulse Ox O2 Delivery O2 Flow Rate FiO2 01/17/18 11:22 96 01/17/18 11:08 98.0 50 16 120/79 (93) Nasal Cannula 0.5 Intake and Output 01/17/18 07:00 Intake Total 3848 ml Output Total 575 ml Balance 3273 ml Intake Oral 820 ml IV Total 3028 ml Output Urine Total 575 ml # Bowel Movements 4 General Appearance: Alert, Awake, No Acute Distress Cardiovascular: Regular Rate and Rhythm Respiratory: Clear to Auscultation, Other (slightly decreased bases) GI: Other (Mildly protuberant, + bowel sounds, incisions right abdomen clean and without cellulitis, stoma site with some old drainage, minimal, occasional old blood per rectum.) Extremities: Soft and Non Tender, Warm Result Diagram: 01/17/18 0615 01/15/18 0534 Assessment and Plan Problems: (1) Colostomy in place Status: Chronic Assessment & Plan: 01/15/18: POD#1 s/p robotic colostomy takedown with mobilization of splenic flexure. Having some nausea this morning with low BPs overnight. Will follow this today. She thinks getting something in her stomach might help. Will try low volume clear diet today. Pt advised to take it slow. PPI, Lovenox for prophylaxis. Ambulate, IS, pulmonary hygiene. 01/16/18 Patient looks remarkably better today with no further nausea or vomiting and pain is improved. Not taking clear liquids well but no vomiting. Encouraged ambulation and IS. I will check CBC in am. Also, blood pressure is slowly trending up. I will continue to monitor. 01/17/18 11:30am: Patient is improved from when I visited with her last night but still has intermittent nausea. Was able to take some ice cream last night and did well. I will advance her to full liquids but will not push her. Continue ambulation, IS and await return of GI function. Blood pressure better over prior 24 hours. Note lower platelets on CBC. Recheck in am Exam Sepsis Risk: No Definite Risk ALVINA KNUTSON MD Jan 17, 2018 11:26
[2018-01-17 14:41] VITALS: BP 112/61
[2018-01-17 18:17] VITALS: BP 137/76
[2018-01-18] VITALS (9 sets, daily range): BP systolic 109–145; BP diastolic 67–90
[2018-01-18] MEDS: KETOROLAC 30 MG/ML VIAL IVP SCH ×2 (00:17→05:16)
[2018-01-18] MEDS: ONDANSETRON 4 MG/2 ML VIAL IVP PRN ×2 (00:17→08:26)
[2018-01-18] MEDS: ACETAMINOPHEN(*)1000 MG/100 ML 100 ML IVPB SCH ×2 (00:17→05:16)
[2018-01-18] MEDS: NS(*) 0.9% 1000 ML BAG 1,000 ML IV PRN (02:45)
[2018-01-18] MEDS: metroNIDAZOLE* 500MG/100ML BAG 100 ML IVPB SCH (05:59)
[2018-01-18 06:07] LABS: PLATELET COUNT, AUTOMATED 131 K/uL (150-450)
[2018-01-18] MEDS ORDERED: NS(*) 0.9% 1000 ML BAG 1,000 ML IV PRN (07:30)
[2018-01-18] MEDS ORDERED: KETOROLAC 30 MG/ML VIAL IVP PRN (07:35)
--- NOTE | 2018-01-18 07:38 | General Surgery Progress Note ---
Subjective Progress Notes Subjective No specific complaints this morning. Passing flatus. She had a couple of small mucusy BMs. Tolerating full liquid diet. Nausea slowly improving. Physical Exam Vital Signs Date Time Temp Pulse Resp B/P (MAP) Pulse Ox O2 Delivery O2 Flow Rate FiO2 01/18/18 07:23 91 01/18/18 07:14 Nasal Cannula 0.5 01/18/18 04:12 20 01/18/18 02:46 97.9 58 120/70 (87) Intake and Output 01/18/18 07:00 Intake Total 2726 ml Output Total 825 ml Balance 1901 ml Intake Oral 50 ml IV Total 2676 ml Output Urine Total 825 ml # Bowel Movements 2 General Appearance: Alert, Awake, No Acute Distress, Afebrile GI: Other (Soft, appropriate postop TTP, incisions all look good without erythema or drainage. Colostomy takedown wound looks good.) Extremities: Warm, Perfused Result Diagram: 01/18/1851301/18/18513 Assessment and Plan Problems: (1) Colostomy in place Status: Chronic Assessment & Plan: 01/15/18: POD#1 s/p robotic colostomy takedown with mobilization of splenic flexure. Having some nausea this morning with low BPs overnight. Will follow this today. She thinks getting something in her stomach might help. Will try low volume clear diet today. Pt advised to take it slow. PPI, Lovenox for prophylaxis. Ambulate, IS, pulmonary hygiene. 01/16/18 Patient looks remarkably better today with no further nausea or vomiting and pain is improved. Not taking clear liquids well but no vomiting. Encouraged ambulation and IS. I will check CBC in am. Also, blood pressure is slowly trending up. I will continue to monitor. 01/17/18 11:30am: Patient is improved from when I visited with her last night but still has intermittent nausea. Was able to take some ice cream last night and did well. I will advance her to full liquids but will not push her. Continue ambulation, IS and await return of GI function. Blood pressure better over prior 24 hours. Note lower platelets on CBC. Recheck in am 01/18/18: POD#4. Doing well. Will start regular diet and decrease IV fluids this morning. Metronidazole is still scheduled for some reason so will stop this; this can contribute to her nausea. Her urinary catheter is still in place this morning, will remove this this morning. If she tolerates a regular diet today, will convert all meds to PO and stop all IV fluids/meds. Possibly home tomorrow or the next day depending on how she does today/tomorrow. Continue ambulation, IS, pulmonary hygiene, lovenox, PPI, etc. Labs all look good, will stop checking them unless her clinical course changes. Condition STable. Time Spent: < 30 min Exam Sepsis Risk: No Definite Risk TANA KANG MD Jan 18, 2018 07:38
[2018-01-18] MEDS: LEVOTHYROXINE SOD 0.075 MG TAB PO SCH (08:14)
[2018-01-18] MEDS: PRAVASTATIN SOD 20 MG TAB PO SCH (08:15)
[2018-01-18] MEDS: PANTOPRAZOLE SOD 40 MG IV VIAL IVP SCH (08:15)
[2018-01-18] MEDS: ENOXAPARIN 40 MG/0.4ML SYR SC SCH (08:15)
--- NOTE | 2018-01-18 10:54 | Medical Nutrition Therapy ---
Nutrition Anthropometrics Height (Inches): 67.00 Height (Calculated Centimeters: 170.404505 Weight (Pounds): 190 Weight (Calculated Kilograms): 86.183 Sudeep Nutrition Score: Probably Inadequate Sudeep Nutrition Risk Score: 18 Dietary Referral Nutrition Risk Factors: Nutrition Risk Comment: Pt sleeping from Surgery. Unable to gain information. Nutritional Diagnosis Nutritional Risk Acuity 2: New Colostomy Nutritional Risk Acuity 3: Nausea Nutritional Acuity: 2-Moderate (colostomy takedown) Nutrition Diagnosis: Altered GI Function Nutrition Etiology: Physiological Causes Nutrition Problem/Etiology/Sym: AEB colostomy takedown Energy Requirement: 2100 (M-StJ X 1.1SF) Protein Requirement: 86 (1gm/kg) Fluid Requirement: 2580 (30ml/kg) Diet Type: Diet as Tolerated FLAKITA/REG Nutrition Intervention: Incr diet as tolerated Nutrition Monitoring & Eval Nutrition Goals: Eat 75-100% Meal RD Patient Assessment Time: [address] Assessment Type: RD Re-Assessment Patient Nutrition Acuity: 2-Moderate Follow Up Date: Jan 23, 2018 Nutritional Comment: 01/15 Pt admitted for colostomy takedown. Pt on clear liquid diet. Pt has hypoactive bowels but no flatus at this time. Pt reporting nausea. Will cont to monitor. SHEKHAR 01/18 Diet advanced to regular. Pt was taking small amounts of med liquid/GO soft. No significant labs. Pt passing flatus. Will cont to monitor and encourage intake. KANWAL BARNES Jan 18, 2018 10:54
--- NOTE | 2018-01-18 11:17 | Medical Nutrition Therapy ---
Nutrition Anthropometrics Height (Inches): 67.00 Height (Calculated Centimeters: 170.307421 Weight (Pounds): 190 Weight (Calculated Kilograms): 86.183 Sudeep Nutrition Score: Probably Inadequate Sudeep Nutrition Risk Score: 18 Dietary Referral Nutrition Risk Factors: Nutrition Risk Comment: Pt sleeping from Surgery. Unable to gain information. Physical Findings Physical Appearance: Overweight BMI 25-29 Skin Appearance Skin Appearance: Edema Edema Location Modifier: Both Edema Location: Leg Type of Edema: Degree of Edema: Gastrointestinal Symptoms GI Symtoms: Nausea Tube Present: Bowel Sounds: Recent Bowel Pattern: Stool Characteristics: Nutritional Diagnosis Nutritional Risk Acuity 3: Nausea Nutritional Acuity: 2-Moderate (colostomy takedown) Nutrition Diagnosis: Altered GI Function Nutrition Etiology: Physiological Causes Nutrition Problem/Etiology/Sym: AEB colostomy takedown Energy Requirement: 2100 (M-StJ X 1.1SF) Protein Requirement: 86 (1gm/kg) Fluid Requirement: 2580 (30ml/kg) Diet Type: Diet as Tolerated FLAKITA/REG Nutrition Intervention: Incr diet as tolerated Nutrition Monitoring & Eval RD Patient Assessment Time: [address] Assessment Type: RD Re-Assessment Patient Nutrition Acuity: 2-Moderate Follow Up Date: Jan 23, 2018 Nutritional Comment: 01/15 Pt admitted for colostomy takedown. Pt on clear liquid diet. Pt has hypoactive bowels but no flatus at this time. Pt reporting nausea. Will cont to monitor. SHEKHAR 01/18 Diet advanced to regular. Pt was taking small amounts of med liquid/GO soft. No significant labs. Pt passing flatus. Will cont to monitor and encourage intake. KANWAL BARNES Jan 18, 2018 11:17
[2018-01-18] MEDS ORDERED: ACETAMINOPHEN(*)1000 MG/100 ML 100 ML IVPB PRN (12:00)
[2018-01-18] MEDS ORDERED: PATCH REMOVAL 1 EA TP ONE (16:45)
[2018-01-19 06:09] VITALS: BP 124/69
[2018-01-19] MEDS: LEVOTHYROXINE SOD 0.075 MG TAB PO SCH (06:11)
--- NOTE | 2018-01-19 06:30 | General Surgery Progress Note ---
Subjective Progress Notes Subjective Nausea is better this morning. Abdomen feels a "little tighter." Still passing flatus, but a "little less" then yesterday. Pain well controlled. Physical Exam Vital Signs Date Time Temp Pulse Resp B/P (MAP) Pulse Ox O2 Delivery O2 Flow Rate FiO2 01/19/18 06:09 98.2 57 12 124/69 (87) 96 Nasal Cannula 1.5 Intake and Output 01/19/18 06:59 Intake Total 1030 ml Output Total 100 ml Balance 930 ml Intake Oral 930 ml IV Total 100 ml Output Urine Total 100 ml # Voids 8 General Appearance: Alert, Awake, No Acute Distress, Afebrile GI: Other (Soft, appropriate postop TTP, incisions all look good. Rutledge drain removed, stoma takedown wound looks good. No erythema.) Extremities: Warm, Perfused Result Diagram: 01/18/1851301/18/18513 Assessment and Plan Problems: (1) Colostomy in place Status: Chronic Assessment & Plan: 01/15/18: POD#1 s/p robotic colostomy takedown with mobilization of splenic flexure. Having some nausea this morning with low BPs overnight. Will follow this today. She thinks getting something in her stomach might help. Will try low volume clear diet today. Pt advised to take it slow. PPI, Lovenox for prophylaxis. Ambulate, IS, pulmonary hygiene. 01/16/18 Patient looks remarkably better today with no further nausea or vomiting and pain is improved. Not taking clear liquids well but no vomiting. Encouraged ambulation and IS. I will check CBC in am. Also, blood pressure is slowly trending up. I will continue to monitor. 01/17/18 11:30am: Patient is improved from when I visited with her last night but still has intermittent nausea. Was able to take some ice cream last night and did well. I will advance her to full liquids but will not push her. Continue ambulation, IS and await return of GI function. Blood pressure better over prior 24 hours. Note lower platelets on CBC. Recheck in am 01/18/18: POD#4. Doing well. Will start regular diet and decrease IV fluids this morning. Metronidazole is still scheduled for some reason so will stop this; this can contribute to her nausea. Her urinary catheter is still in place this morning, will remove this this morning. If she tolerates a regular diet today, will convert all meds to PO and stop all IV fluids/meds. Possibly home tomorrow or the next day depending on how she does today/tomorrow. Continue ambulation, IS, pulmonary hygiene, lovenox, PPI, etc. Labs all look good, will stop checking them unless her clinical course changes. 01/19/18; POD#5. Clinically she looks good. Tolerating regular diet. Will stop IV fluids and convert all meds to PO. She does have chronic severe constipation which is what led her to her initial presentation with the colonic perforation. Will have her drink prune juice and have activia yogurt daily to work as a gentle laxative; we don't want to be too aggressive due to the healing anastomosis. O/W, continue PPI, lovenox, pulmonary hygiene, IS, ambulation, etc. Will use percocet, acetaminophen, ibuprofen for pain control and will try to rely more on the non-opioid meds if possible. If she does well with this regimen today then possibly home tomorrow but will have to watch her GI function closely today. Condition Stable. Time Spent: < 30 min Exam Sepsis Risk: No Definite Risk TANA KANG MD Jan 19, 2018 06:30
[2018-01-19 07:46] VITALS: BP 127/71
[2018-01-19] MEDS: ACETAMINOPHEN 325 MG TAB PO PRN ×3 (08:01→21:35)
[2018-01-19] MEDS: PANTOPRAZOLE SOD 40 MG TABEC PO SCH (09:31)
[2018-01-19] MEDS: PRAVASTATIN SOD 20 MG TAB PO SCH (09:31)
[2018-01-19] MEDS: ENOXAPARIN 40 MG/0.4ML SYR SC SCH (09:32)
[2018-01-19 12:35] VITALS: BP 127/74
[2018-01-19] MEDS: IBUPROFEN 600 MG TAB PO PRN ×2 (12:36→19:30)
[2018-01-19 15:19] VITALS: BP 143/78
[2018-01-19 19:30] VITALS: BP 122/67
[2018-01-19 19:31] VITALS: BP 122/67
[2018-01-20 00:10] VITALS: BP 118/70
[2018-01-20] MEDS: IBUPROFEN 600 MG TAB PO PRN ×2 (01:38→08:28)
[2018-01-20] MEDS: ACETAMINOPHEN 325 MG TAB PO PRN (03:44)
[2018-01-20 03:45] VITALS: BP 126/76
[2018-01-20] MEDS: LEVOTHYROXINE SOD 0.075 MG TAB PO SCH (06:01)
--- NOTE | 2018-01-20 06:39 | Short(Outpt) Discharge Summary ---
Discharge Summary Reason for Hosp/Final Diag: (1) Colostomy in place Status: Chronic Hospital Course & Plan: 01/15/18: POD#1 s/p robotic colostomy takedown with mobilization of splenic flexure. Having some nausea this morning with low BPs overnight. Will follow this today. She thinks getting something in her stomach might help. Will try low volume clear diet today. Pt advised to take it slow. PPI, Lovenox for prophylaxis. Ambulate, IS, pulmonary hygiene. 01/16/18 Patient looks remarkably better today with no further nausea or vomiting and pain is improved. Not taking clear liquids well but no vomiting. Encouraged ambulation and IS. I will check CBC in am. Also, blood pressure is slowly trending up. I will continue to monitor. 01/17/18 11:30am: Patient is improved from when I visited with her last night but still has intermittent nausea. Was able to take some ice cream last night and did well. I will advance her to full liquids but will not push her. Continue ambulation, IS and await return of GI function. Blood pressure better over prior 24 hours. Note lower platelets on CBC. Recheck in am 01/18/18: POD#4. Doing well. Will start regular diet and decrease IV fluids this morning. Metronidazole is still scheduled for some reason so will stop this; this can contribute to her nausea. Her urinary catheter is still in place this morning, will remove this this morning. If she tolerates a regular diet today, will convert all meds to PO and stop all IV fluids/meds. Possibly home tomorrow or the next day depending on how she does today/tomorrow. Continue ambulation, IS, pulmonary hygiene, lovenox, PPI, etc. Labs all look good, will stop checking them unless her clinical course changes. 01/19/18; POD#5. Clinically she looks good. Tolerating regular diet. Will stop IV fluids and convert all meds to PO. She does have chronic severe constipation which is what led her to her initial presentation with the colonic perforation. Will have her drink prune juice and have activia yogurt daily to work as a gentle laxative; we don't want to be too aggressive due to the healing anastomosis. O/W, continue PPI, lovenox, pulmonary hygiene, IS, ambulation, etc. Will use percocet, acetaminophen, ibuprofen for pain control and will try to rely more on the non-opioid meds if possible. If she does well with this regimen today then possibly home tomorrow but will have to watch her GI function closely today. 01/19/18: POD#6. Doing well. Tolerating regular diet, passing flatus and stool, good GI function. Almost no pain at this point. Incisions all look good. The colostomy takedown wound looks good and is almost closed, I removed the only staple in it today. Will d/c to home today with f/u in my office next week. Departure Discharge to: Home, Self Care Discharge Instructions Home Meds Reported Medications Polyethylene Glycol 3350 (CLEARLAX) 119 Gm Powder, 119 GM PO DAILY 01/05/18 Docusate Sodium (COLACE) 100 Mg Capsule, 100 MG PO BID, CAPSULE 08/25/17 Aspirin (ASPIR 81) 81 Mg Tablet.dr 81 MG PO QDAY, TAB 07/02/17 Pravastatin Sodium (PRAVACHOL) 20 Mg Tablet, 40 MG PO QDAY, TAB 07/02/17 Levothyroxine Sodium (SYNTHROID) 75 Mcg Tablet, 75 MCG PO QDAY 07/02/17 Follow up Referrals: General Surgery - 01/26/18 @ Surgery, General with TANA KANG MD You have a follow up appointment scheduled with Dr. Kang on 01/26/18, at 4:30pm. Diet: Regular Activity: No Heavy Lifting Special Instructions: You may shower as desired but don't immerse the incisions for 2 weeks. Change the dressing over your colostomy takedown wound every day and when there's no further drainage you can leave it open to air. Leave the steristrips in place on the other incisions until they fall off on their own. Avoid any activity that involves straining or lifting more than 10 pounds for 6 weeks after surgery. TANA KANG MD Jan 20, 2018 06:39
[2018-01-20 07:20] VITALS: BP 122/66
[2018-01-20] MEDS: PANTOPRAZOLE SOD 40 MG TABEC PO SCH (08:28)
[2018-01-20] MEDS: PRAVASTATIN SOD 20 MG TAB PO SCH (08:28)
[2018-01-20] MEDS: ENOXAPARIN 40 MG/0.4ML SYR SC SCH (08:29)
== END 2018-01-20 09:15 | disposition home or self-care (01) | DRG 331 ==
LOC: OR 00:51 → MED 20:12
PROVIDERS: ADMIT Surgery; ATTEND Surgery
PROC: 8E0W4CZ Robotic Assisted Procedure of Trunk Region, Percutaneous Endoscopic Approach (ICD-10-PCS; 2018-01-14)
PROC: 0DJD8ZZ Inspection of Lower Intestinal Tract, Via Natural or Artificial Opening Endoscopic (ICD-10-PCS; 2018-01-14)
PROC: 0DQN4ZZ Repair Sigmoid Colon, Percutaneous Endoscopic Approach (ICD-10-PCS; principal; 2018-01-14 10:54)
DX: Z43.3 Encounter for attention to colostomy (principal); E03.9 Hypothyroidism, unspecified; E78.5 Hyperlipidemia, unspecified
CPT/HCPCS: 36415; 36416; 82310; 82374; 82435; 82565; 82947; 82948; 84132; 84295; 84520; 85025; 86850; 86900; 86901; 88307; C9113; J0131; J1100; J1170; J1650; J1885; J1956; J2001; J2250; J2270; J2405; J2704; J2795; J3010; J3490; J7030; J7050; J7120